=== PATIENT | female | born 1995 | race Caucasian/White ===

== ENCOUNTER → 2017-09-06 10:14 | Outpatient (CLI) | payer OTHER, SELFPAY ==
[2017-09-06 12:11] LABS: BUN Creatinine Ratio 15.7 (6-22); Blood Urea Nitrogen 11 mg/dL (7-17); Calcium 10.1 mg/dL (8.4-10.2); Carbon Dioxide 23 mmol/L (22-32); Chloride 101 mmol/L (98-107); Estimated Glomerular Filt Rate > 60.0 mL/min (>60); Glucose 88 mg/dL (70-100); HEMOLYSIS < 15 (0-50); Sodium 141 mmol/L (137-145)
== END ==
PROVIDERS: Family Provider Family Medicine; PCP Family Medicine; Visit Provider Family Medicine
DX: L68.0 Hirsutism (principal)
CPT/HCPCS: 36415; 80048

== ENCOUNTER 2017-09-17 12:09 | Emergency (ER) | payer OTHER, SELFPAY ==
[2017-09-17 12:52] VITALS: BP 132/86; PULSE 84; RESP 13; TEMP 36.6; O2SAT 99
[2017-09-17 14:31] VITALS: BP 124/84; PULSE 88; RESP 16; O2SAT 100
--- NOTE | 2017-09-17 14:51 | ED.SKABFB ---
HPI - Skin/Abscess/Foreign Bdy <TAQUERIA Walker - Last Filed: 09/17/17 22:20> General Chief complaint: Skin/Abscess/Foreign Body Stated complaint: Itchy, swollen hands Time Seen by Provider: 09/17/17 14:51 History of Present Illness HPI narrative: 22-year-old female here for complaint of having global pruritis for the last week. She was seen in the walk-in clinic and was treated with prednisone and antihistamines. She reports that she had some relief from these treatments however she is still having itching. She denies any changes to medications. With the exception of starting spironolactone last month. She denies any hygiene changes or diet changes. No hives. No shortness of breath. No other complaints. MD complaint: other Related Data Home Medications Medication Instructions Recorded Confirmed levonorgestrel [Mirena] 52 mg INTRAU #0 ea 12/19/15 09/12/17 ibuprofen 200 mg capsule 400 mg PO Q4-6H PRN 09/06/17 09/12/17 Previous Rx's Medication Instructions Recorded spironolactone 50 mg tablet 50 mg PO QAM #30 tab 08/03/17 hydroxyzine HCl 25 mg PO Q6-8H PRN #20 tab 09/17/17 Allergies Allergy/AdvReac Type Severity Reaction Status Date / Time amoxicillin Allergy Mild Verified 09/12/17 18:55 Review of Systems <TAQUERIA Walker - Last Filed: 09/17/17 22:20> Constitutional Denies chills, Denies fever(s), Denies lethargy and Denies weakness Eyes Denies change in vision, Denies eye discharge, Denies irritation and Denies loss of vision ENT Ears, Nose, Mouth, and Throat: Denies change in voice, Denies neck pain and Denies sore throat Cardiovascular Denies chest pain, Denies irregular heart rhythm, Denies lightheadedness, Denies palpitations, Denies dyspnea, Denies dyspnea on exertion and Denies orthopnea Respiratory Denies cough, Denies dyspnea, Denies dyspnea on exertion and Denies wheezing Gastrointestinal Gastrointestinal: Denies abdominal pain, Denies change in bowel habits, Denies diarrhea, Denies nausea and Denies vomiting Genitourinary Denies hematuria, Denies flank pain, Denies urinary incontinence and Denies urinary urgency Musculoskeletal Denies neck pain Integumentary/Breasts Reports pruritus Neurologic Denies confusion, Denies loss of vision and Denies weakness Psychiatric Denies anxiety, Denies confusion, Denies depression, Denies homicidal ideation and Denies suicidal ideation Endocrine Denies palpitations Hematologic/Lymphatic Denies easy bruising Allergic/Immunologic Denies wheezing Exam <TAQUERIA Walker - Last Filed: 09/17/17 22:20> Initial Vital Signs Initial Vital Signs: Vital Signs Temperature 97.9 F 09/17/17 12:52 Pulse Rate 84 09/17/17 12:52 Respiratory Rate 13 09/17/17 12:52 Blood Pressure 132/86 H 09/17/17 12:52 Pulse Oximetry 99 09/17/17 12:52 Const General: cooperative and well developed Nutritional Appearance: well nourished Orientation: alert, awake, oriented x3 and not confused HENMT Mouth: oral mucosae normal and moist mucous membranes Eyes Conjunctivae: conjunctivae normal Sclera: sclerae normal Pupils: PERRL EOM: EOM intact bilaterally Resp Effort & Inspection: normal respiratory effort, able to speak in complete sentences, no respiratory distress and no use of accessory muscles Auscultation: clear to auscultation bilaterally, no rales, no rhonchi and no wheezes Cardio Rate: regular rate Rhythm: regular rhythm Heart Sounds: no click, no gallops, no murmurs and no rubs Skin General: no rashes or lesions noted, No jaundice and No petechiae <Rosie Rodrigues DO - Last Filed: 09/18/17 09:23> Initial Vital Signs Initial Vital Signs: Vital Signs Temperature 97.9 F 09/17/17 12:52 Pulse Rate 84 09/17/17 12:52 Respiratory Rate 13 09/17/17 12:52 Blood Pressure 132/86 H 09/17/17 12:52 Pulse Oximetry 99 09/17/17 12:52 Course <TAQUERIA Walker - Last Filed: 09/17/17 22:20> Vital Signs - 8 hr 09/17/17 14:31 09/17/17 16:06 Pulse Rate 88 82 Respiratory Rate 16 14 Blood Pressure [Left Arm] 124/84 H 128/66 H Pulse Oximetry 100 97 <Rosie Rodrigues DO - Last Filed: 09/18/17 09:23> Vital Signs - 8 hr 09/17/17 14:31 09/17/17 16:06 Pulse Rate 88 82 Respiratory Rate 16 14 Blood Pressure [Left Arm] 124/84 H 128/66 H Pulse Oximetry 100 97 MDM - Skin/Abscess/Foreign Bdy <TAQUERIA Walker - Last Filed: 09/17/17 22:20> [facility] Narrative Medical decision making narrative: On exam no rashes or lesions seen with the exception of some excoriation to her lower back. No dry skin. No histamine response appreciated. Unknown etiology of her pruritus. Pruritus is listed as a possible side effect of spironolactone so I will have her discuss this with her primary care provider this week. Will try Vistaril to see if it helps her symptoms. She is encouraged to use mild soap for hygiene. For any worsening symptoms return to the emergency room. Discharge Plan Departure Patient Disposition: Home, Self-Care Clinical Impression: Pruritus Discharge Date/Time: 09/17/17 16:41 Interventions: ED Discharge Assessment Last Done: 09/17/17 16:41 Instructions: DI for Itching Activity Restrictions/Additional Instructions: No rash was appreciated on exam today. Spironolactone does have a listed side effect as itching and may be the possible source discussed this with her primary care provider this week. A different antihistamine visceral has been prescribed use as directed to see if it helps her symptoms. Use mild soap for hygiene to also see if it helps her symptoms. Follow up with her primary care provider. Return emergency room for any worsening symptoms. Prescriptions: New hydroxyzine HCl 25 mg tablet 25 mg PO Q6-8H PRN (Reason: itching) Qty: 20 RF: 0 No Action levonorgestrel [Mirena] 1 EACH intrauterine device 52 mg INTRAU Qty: 0 RF: 0 spironolactone 50 mg tablet 50 mg PO QAM Qty: 30 RF: 1 ibuprofen 200 mg capsule 400 mg PO Q4-6H PRNRF: 0 <Rosie Rodrigues DO - Last Filed: 09/18/17 09:23> Cosign ED Attending Jacquelineature Attestation: I was immediately available in the department for consultation. Documentation has been reviewed. I agree with assessment and plan.
[2017-09-17 16:06] VITALS: BP 128/66; PULSE 82; RESP 14; O2SAT 97
== END 2017-09-17 16:41 | disposition home or self-care (01) ==
PROVIDERS: Emergency Provider Nurse Practitioner Family; Family Provider Family Medicine; PCP Family Medicine
DX: L29.9 Pruritus, unspecified (principal)
CPT/HCPCS: 99282

== ENCOUNTER 2017-10-04 07:30 | Outpatient (RCR) | payer OTHER, SELFPAY ==
--- NOTE | 2017-08-24 07:51 | PT.OIE ---
Current Diagnoses Patellofemoral disorders, right knee (08/23/17) Past Medical History (Last Updated 08/03/17 @ 09:19 by Shana Longoria DO) Abnormal Pap smear of cervix (Acute) Anxiety and depression (Acute) Chlamydia (Acute) Migraines (Acute) Past Surgical History (Last Reviewed 08/03/17 @ 09:19 by Shana Longoria DO) Hx of tympanostomy tubes (Acute) Status post delivery (03/12/08) Provider Visit Care Team Role Provider Type Shana Longoria DO Attending Provider Physician Family Provider Primary Care Provider Specialty: Family Practice Address: [address] [place] [address], [employer] Email: [email or web address] Physical Therapy Initial Evaluation PT-OP-A Visit Information Start: 08/23/17 16:21 Freq: Status: Active Protocol: Document 08/23/17 16:23 EA (Rec: 08/23/17 16:38 EA [id number]) Out-Patient Physical Therapy Visit Information Visit Information Visit Type Initial Evaluation Visit Start Time 07:30 Visit Stop Time 08:05 Total Visit Minutes 35 Visit Number 1 Evaluation Information Evaluation Date 08/23/17 PT-OP-B Current Condition Start: 08/23/17 16:21 Freq: Status: Active Protocol: Document 08/23/17 16:23 EA (Rec: 08/23/17 16:38 EA [id number]) Current Condition History of Current Condition Onset Date 3 months ago Current Complaints Bilateral intermittent localized knee pain History of Current Condition Patient reports bilateral knee pain started gradullay over the course of three months and noted pain increased after doing treadmill exercises in the gym; states no x-rays were taken after last physician check up and was given pain med's. Patient reports pain aggravates with climbing down stairs and prolonged walking; states pain med's and heating pads helps but not much. 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 Health History: Tape allergy, Occasional LBP, On HTN medication, Migraine. Prior Treatments and Tests None Future Testing and Treatments Planned Patient is under the treatment for PCOS. Treatment Goals Patient/Caregiver Goals Patient wants to eliminate pain completely so she could perform gym exercises and lose more weight. Patient wants to learn exercises that would improve her knees. Prior Functional Status Baseline Function- ADL's Independent Baseline Function- Mobility Independent Current Functional Impairments (Reported) Functional Limitations- ADL's indep Functional Limitations- Mobility/Gait Indep with mild difficulty Functional Limitations- Recreation/ Limited due to pain Hobbies PT-OP-C Subjective Start: 08/23/17 16:21 Freq: Status: Active Protocol: Document 08/23/17 16:23 EA (Rec: 08/23/17 16:38 EA [id number]) OP-PT Subjective Patient Comments Patient Comments Patient reports bilateral knee pain started gradually over the course of three months and noted pain increased after doing treadmill exercises in the gym; states no x-rays were taken after last physician check up and was given pain med's. Patient reports pain aggravates with climbing down stairs and prolonged walking; states pain med's and heating pads helps but not much. 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 Patient Reported Progress Same Patient Questionnaires Lower Extremity Functional Scale LEFS Impairment 40 to 59% Impaired (Score 32- 47) OP-PT Pain Assessment Pain Assessment Grid Paper Pain Assessment Grid Completed Yes Home Pain Medication Use Pain Medications Used Yes Home Pain Medication Frequency Mediaction that use to treat PCOS Patient Goal Wants to eliminate the pain. PT-OP-F Manual Assessment Start: 08/23/17 16:21 Freq: Status: Active Protocol: Document 08/23/17 16:23 EA (Rec: 08/23/17 16:38 EA [id number]) Manual Assessments Soft Tissue Assessment Soft Tissue Mobility Assessment Tightness to both IT bands, Left quads/Hamstring Joint Mobility Assessment Joint Mobility Assessment PF joint decreased left medial glide PT-OP-G Mobility & Gait Start: 08/23/17 16:21 Freq: Status: Active Protocol: Document 08/23/17 16:23 EA (Rec: 08/23/17 16:38 EA [id number]) OP Gait Assessment Gait Gait Assistance Required: Independent Assistive Devices Assistive Device None Gait Deviations General Gait Pattern Antalgic Factors Limiting Gait Function Factors Limiting Gait Function Pain Comments Gait Comments Waddling gait noted and slight antalgic to left side. Stair Climbing Evaluation Evaluation Level of Assist On Stairs Independent Devices Stair Climbing Assistive Devices None Technique/Endurance Stair Climbing Direction Descend Comments Stair Climbing Comments With mild difficulty during descent PT-OP-J Posture/Palpation/Skin Start: 08/23/17 16:21 Freq: Status: Active Protocol: Document 08/23/17 16:38 EA (Rec: 08/23/17 16:46 EA [id number]) Palpation Assessment Location One Palpation Findings Tenderness Palpation Details left medial middle patellar border Skin Assessment Circumference Measurement 1 Location L Knee 15.8 : Right knee 15.5 at mid joint PT-OP-K Range of Motion Start: 08/23/17 16:21 Freq: Status: Active Protocol: Document 08/23/17 16:38 EA (Rec: 08/23/17 16:46 EA [id number]) Knee Goniometric Range of Motion Knee Measured in Degrees Left Patient Position Supine Hyper-Extension Active 0 PT-OP-L Special Tests Start: 08/23/17 16:21 Freq: Status: Active Protocol: Document 08/23/17 16:38 EA (Rec: 08/23/17 16:46 EA [id number]) Special Tests Knee Special Tests Varus- 25 Degrees Test Results negative both Valgus- 25 Degrees Test Results negative both Allison Test Test Results negative both Junior's Sign Test Results both positive Carrol's Test Test Results slight sensitive Hughston Pica Test Test Results positive left Polk's Compression Test Results left side positive Macho's Test Test Results both positive PT-OP-M Strength Start: 08/23/17 16:21 Freq: Status: Active Protocol: Document 08/23/17 16:38 EA (Rec: 08/23/17 16:46 EA [id number]) Hip Strength Hip Manual Muscle Testing Right Flexion (L2) 5 Normal Extension (S1) 5 Normal Abduction 5 Normal Adduction 5 Normal External Rotation 5 Normal Internal Rotation 4 Good Left Flexion (L2) 5 Normal Extension (S1) 5 Normal Abduction 5 Normal Adduction 5 Normal External Rotation 5 Normal Internal Rotation 4 Good Knee Strength Knee Manual Muscle Testing Left Reason Not Measured WFL Right Reason Not Measured WFL PT-OP-Q Treatments Start: 08/23/17 16:21 Freq: Status: Active Protocol: Document 08/23/17 16:38 EA (Rec: 08/23/17 16:46 EA [id number]) Self-Care/Home Management Treatment Education Patient Education Home Exercise Program Pain Management PT-OP-T Assessment and Plan Start: 08/23/17 16:21 Freq: Status: Active Protocol: Document 08/23/17 16:38 KENAN (Rec: 08/23/17 16:46 KENAN [id number]) Physical Therapy Assessment Rehab Potential Rehabilitation Potential Good Evaluation Complexity Number of Personal Factors/Comorbidities 0 Number of Body Systems Impaired 1-2 Clinical Presentation at Evaluation Stable Impairments Impairments Edema Pain Posture Soft Tissue Mobility Goals Five Impairment Pain with stairs descent Siebel Solution Architect Goal (LTG) Patient will reports no pain w / stairs descent. LTG Duration 4 wks. Four Impairment Pain scale of 3/10 Retirement Goal (LTG) Patient will reports pain scale of 0/10 LTG Duration 4 wks. Three Impairment Tightness to Quads, IT band and hip ER. Siebel Solution Architect Goal (LTG) Patient will have full excursion to quads, IT band and Hip ER. LTG Duration 4 wks Two Impairment Decreased left patellar medial glide Siebel Solution Architect Goal (LTG) Patient will have improve patellar tracking/ medial patellar glide for to decrease pressure to patella. 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 Patient presented with tightness to both quads, IT band, hip ERotators; decreased left medial patellar glide and tender to palpate at the borders of patella. Patient exhibits positive with bilat knees Junior's sign and left knee Plica test. Ligaments and menisci are unremarkable at the time of tests. Due to patient's musculoskeltal dysfunction, patient has limitation with WB activities that involves squating. Patient barrier noted at this time is her obesity condition. Patient will benefit with skilled PT to address the aforementioned issues. Physical Therapy Plan Frequency and Duration Frequency of Treatment 2x/Week Plan of Care Start Date 08/23/17 Plan of Care End Date 09/20/17 Therapeutic Interventions Therapeutic Interventions Home Exercise Program Joint Mobilizations Manual Therapy Patient/Caregiver Education Soft Tissue Mobilization Therapeutic Exercises Modalities Cold Pack/Ice Massage Electric Stimulation Hot Packs Ultrasound Next Visit Focus/Plan Next Visit Plan HEP handouts, flexibility exercises and VMO strengthening. Please Sign and Return: I have reviewed this Plan of Care and certify that the skilled therapy services above are required to meet the patient???s needs. Physician Signature Date Printed Name and Credentials Clinical Instructor Signature Printed Name and Credentials
--- NOTE | 2017-08-25 10:26 | PT.OTN ---
Current Diagnoses Patellofemoral disorders, right knee (08/25/17) Physical Therapy Treatment Note PT-OP-A Visit Information Start: 08/23/17 16:21 Freq: Status: Active Protocol: Document 08/25/17 07:28 AMB (Rec: 08/25/17 07:28 AMB [email or web address]) Out-Patient Physical Therapy Visit Information Visit Information Visit Type Treatment Note Visit Start Time 07:30 Visit Stop Time 08:15 Total Visit Minutes 45 Visit Number 2 Evaluation Information Evaluation Date 08/23/17 PT-OP-B Current Condition Start: 08/23/17 16:21 Freq: Status: Active Protocol: Document 08/23/17 16:23 EA (Rec: 08/23/17 16:38 EA [id number]) Current Condition History of Current Condition Onset Date 3 months ago Current Complaints Bilateral intermittent localized knee pain History of Current Condition Patient reports bilateral knee pain started gradullay over the course of three months and noted pain increased after doing treadmill exercises in the gym; states no x-rays were taken after last physician check up and was given pain med's. Patient reports pain aggravates with climbing down stairs and prolonged walking; states pain med's and heating pads helps but not much. 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 Health History: Tape allergy, Occasional LBP, On HTN medication, Migraine. Prior Treatments and Tests None Future Testing and Treatments Planned Patient is under the treatment for PCOS. Treatment Goals Patient/Caregiver Goals Patient wants to eliminate pain completely so she could perform gym exercises and lose more weight. Patient wants to learn exercises that would improve her knees. Prior Functional Status Baseline Function- ADL's Independent Baseline Function- Mobility Independent Current Functional Impairments (Reported) Functional Limitations- ADL's indep Functional Limitations- Mobility/Gait Indep with mild difficulty Functional Limitations- Recreation/ Limited due to pain Hobbies PT-OP-C Subjective Start: 08/23/17 16:21 Freq: Status: Active Protocol: Document 08/25/17 07:30 AMB (Rec: 08/25/17 08:02 AMB [id number]) OP-PT Subjective Patient Comments Patient Comments Pt states she was a bit sore after last appointment, she did ice her knees. PT-OP-F Manual Assessment Start: 05/22/18 16:21 Freq: Status: Active Protocol: Document 08/23/17 16:23 EA (Rec: 08/23/17 16:38 EA [id number]) Manual Assessments Soft Tissue Assessment Soft Tissue Mobility Assessment Tightness to both IT bands, Left quads/Hamstring Joint Mobility Assessment Joint Mobility Assessment PF joint decreased left medial glide PT-OP-G Mobility & Gait Start: 08/23/17 16:21 Freq: Status: Active Protocol: Document 08/23/17 16:23 EA (Rec: 08/23/17 16:38 EA [id number]) OP Gait Assessment Gait Gait Assistance Required: Independent Assistive Devices Assistive Device None Gait Deviations General Gait Pattern Antalgic Factors Limiting Gait Function Factors Limiting Gait Function Pain Comments Gait Comments Waddling gait noted and slight antalgic to left side. Stair Climbing Evaluation Evaluation Level of Assist On Stairs Independent Devices Stair Climbing Assistive Devices None Technique/Endurance Stair Climbing Direction Descend Comments Stair Climbing Comments With mild difficulty during descent PT-OP-J Posture/Palpation/Skin Start: 08/23/17 16:21 Freq: Status: Active Protocol: Document 08/23/17 16:38 EA (Rec: 08/23/17 16:46 EA [id number]) Palpation Assessment Location One Palpation Findings Tenderness Palpation Details left medial middle patellar border Skin Assessment Circumference Measurement 1 Location L Knee 15.8 : Right knee 15.5 at mid joint PT-OP-K Range of Motion Start: 08/23/17 16:21 Freq: Status: Active Protocol: Document 08/23/17 16:38 EA (Rec: 08/23/17 16:46 EA [id number]) Knee Goniometric Range of Motion Knee Measured in Degrees Left Patient Position Supine Hyper-Extension Active 0 PT-OP-L Special Tests Start: 08/23/17 16:21 Freq: Status: Active Protocol: Document 08/23/17 16:38 EA (Rec: 08/23/17 16:46 EA [id number]) Special Tests Knee Special Tests Varus- 25 Degrees Test Results negative both Valgus- 25 Degrees Test Results negative both Allison Test Test Results negative both Junior's Sign Test Results both positive Carrol's Test Test Results slight sensitive Hughston Pica Test Test Results positive left Polk's Compression Test Results left side positive Macho's Test Test Results both positive PT-OP-M Strength Start: 08/23/17 16:21 Freq: Status: Active Protocol: Document 08/23/17 16:38 EA (Rec: 08/23/17 16:46 EA [id number]) Hip Strength Hip Manual Muscle Testing Right Flexion (L2) 5 Normal Extension (S1) 5 Normal Abduction 5 Normal Adduction 5 Normal External Rotation 5 Normal Internal Rotation 4 Good Left Flexion (L2) 5 Normal Extension (S1) 5 Normal Abduction 5 Normal Adduction 5 Normal External Rotation 5 Normal Internal Rotation 4 Good Knee Strength Knee Manual Muscle Testing Left Reason Not Measured WFL Right Reason Not Measured WFL PT-OP-Q Treatments Start: 08/23/17 16:21 Freq: Status: Active Protocol: Document 08/25/17 07:30 AMB (Rec: 08/25/17 09:29 AMB [email or web address]) Cardio Equipment Recumbent Bicycle Duration (Minutes) 5 Resistance 5 Seat Position 2 Therapeutic Exercises Supine Exercises 3 Supine Exercise Name single knee to chest Reps/Minutes 30x2 2 Supine Exercise Name piriformis stretch Reps/Minutes 30x2 1 Supine Exercise Name IT band stretch with band Side bilateral Reps/Minutes 30x2 Sidelying Exercises 2 Sidelying Exercise Name clamshell Reps/Minutes 2 x10 1 Sidelying Exercise Name hip abduction Side bilateral Resistance 0# Reps/Minutes 2 x 5 Manual Therapy Treatment Soft Tissue Mobilization 1 Body Location IT band Mobilization Type Rolling Intensity/Depth Moderate PT-OP-R Modalities Start: 08/23/17 16:21 Freq: Status: Active Protocol: Document 08/25/17 07:30 AMB (Rec: 08/25/17 09:31 AMB [email or web address]) Hot Pack/Cold Pack Treatment ice Location Bilateral knees Patient Position Hooklying Treatment Duration (minutes) 10 Patient Tolerance Good PT-OP-T Assessment and Plan Start: 08/23/17 16:21 Freq: Status: Active Protocol: Document 08/25/17 07:30 AMB (Rec: 08/25/17 09:29 AMB [email or web address]) Physical Therapy Assessment Assessment Summary Assessment The patient tolerated stretching exercises well. Fatigues quickly with hip abduction. Tight with IT band and piriformis stretching. Physical Therapy Plan Next Visit Focus/Plan Next Visit Plan Follow up on HEP, start quad strengthening Please Sign and Return: I have reviewed this Plan of Care and certify that the skilled therapy services above are required to meet the patient???s needs. Physician Signature Date Printed Name and Credentials Clinical Instructor Signature Printed Name and Credentials
--- NOTE | 2017-08-31 08:38 | PT.OTN ---
Current Diagnoses Patellofemoral disorders, right knee (08/31/17) Physical Therapy Treatment Note PT-OP-A Visit Information Start: 08/23/17 16:21 Freq: Status: Active Protocol: Document 08/31/17 07:30 AMB (Rec: 08/31/17 07:30 AMB [id number]) Out-Patient Physical Therapy Visit Information Visit Information Visit Type Treatment Note Visit Start Time 07:30 Visit Stop Time 08:15 Total Visit Minutes 45 Visit Number 3 PT-OP-B Current Condition Start: 08/23/17 16:21 Freq: Status: Active Protocol: Document 08/23/17 16:23 EA (Rec: 08/23/17 16:38 EA [id number]) Current Condition History of Current Condition Onset Date 3 months ago Current Complaints Bilateral intermittent localized knee pain History of Current Condition Patient reports bilateral knee pain started gradullay over the course of three months and noted pain increased after doing treadmill exercises in the gym; states no x-rays were taken after last physician check up and was given pain med's. Patient reports pain aggravates with climbing down stairs and prolonged walking; states pain med's and heating pads helps but not much. 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 Health History: Tape allergy, Occasional LBP, On HTN medication, Migraine. Prior Treatments and Tests None Future Testing and Treatments Planned Patient is under the treatment for PCOS. Treatment Goals Patient/Caregiver Goals Patient wants to eliminate pain completely so she could perform gym exercises and lose more weight. Patient wants to learn exercises that would improve her knees. Prior Functional Status Baseline Function- ADL's Independent Baseline Function- Mobility Independent Current Functional Impairments (Reported) Functional Limitations- ADL's indep Functional Limitations- Mobility/Gait Indep with mild difficulty Functional Limitations- Recreation/ Limited due to pain Hobbies PT-OP-C Subjective Start: 08/23/17 16:21 Freq: Status: Active Protocol: Document 08/31/17 07:30 AMB (Rec: 08/31/17 08:08 AMB [id number]) OP-PT Subjective Patient Comments Patient Comments Pt reports she has been feeling good, but she also has not been going to the gym. PT-OP-F Manual Assessment Start: 08/23/17 16:21 Freq: Status: Active Protocol: Document 08/23/17 16:23 EA (Rec: 08/23/17 16:38 EA [id number]) Manual Assessments Soft Tissue Assessment Soft Tissue Mobility Assessment Tightness to both IT bands, Left quads/Hamstring Joint Mobility Assessment Joint Mobility Assessment PF joint decreased left medial glide PT-OP-G Mobility & Gait Start: 08/23/17 16:21 Freq: Status: Active Protocol: Document 08/23/17 16:23 EA (Rec: 08/23/17 16:38 EA [id number]) OP Gait Assessment Gait Gait Assistance Required: Independent Assistive Devices Assistive Device None Gait Deviations General Gait Pattern Antalgic Factors Limiting Gait Function Factors Limiting Gait Function Pain Comments Gait Comments Waddling gait noted and slight antalgic to left side. Stair Climbing Evaluation Evaluation Level of Assist On Stairs Independent Devices Stair Climbing Assistive Devices None Technique/Endurance Stair Climbing Direction Descend Comments Stair Climbing Comments With mild difficulty during descent PT-OP-J Posture/Palpation/Skin Start: 08/23/17 16:21 Freq: Status: Active Protocol: Document 08/23/17 16:38 EA (Rec: 08/23/17 16:46 EA [id number]) Palpation Assessment Location One Palpation Findings Tenderness Palpation Details left medial middle patellar border Skin Assessment Circumference Measurement 1 Location L Knee 15.8 : Right knee 15.5 at mid joint PT-OP-K Range of Motion Start: 08/23/17 16:21 Freq: Status: Active Protocol: Document 08/23/17 16:38 EA (Rec: 08/23/17 16:46 EA [id number]) Knee Goniometric Range of Motion Knee Measured in Degrees Left Patient Position Supine Hyper-Extension Active 0 PT-OP-L Special Tests Start: 08/23/17 16:21 Freq: Status: Active Protocol: Document 08/23/17 16:38 EA (Rec: 08/23/17 16:46 EA [id number]) Special Tests Knee Special Tests Varus- 25 Degrees Test Results negative both Valgus- 25 Degrees Test Results negative both Allison Test Test Results negative both Junior's Sign Test Results both positive Carrol's Test Test Results slight sensitive Hughston Pica Test Test Results positive left Polk's Compression Test Results left side positive Macho's Test Test Results both positive PT-OP-M Strength Start: 08/23/17 16:21 Freq: Status: Active Protocol: Document 08/23/17 16:38 EA (Rec: 08/23/17 16:46 EA [id number]) Hip Strength Hip Manual Muscle Testing Right Flexion (L2) 5 Normal Extension (S1) 5 Normal Abduction 5 Normal Adduction 5 Normal External Rotation 5 Normal Internal Rotation 4 Good Left Flexion (L2) 5 Normal Extension (S1) 5 Normal Abduction 5 Normal Adduction 5 Normal External Rotation 5 Normal Internal Rotation 4 Good Knee Strength Knee Manual Muscle Testing Left Reason Not Measured WFL Right Reason Not Measured WFL PT-OP-Q Treatments Start: 08/23/17 16:21 Freq: Status: Active Protocol: Document 08/31/17 07:30 AMB (Rec: 08/31/17 08:37 AMB [email or web address]) Cardio Equipment Recumbent Bicycle Duration (Minutes) 6 Resistance 5 Seat Position 2 Gym Equipment Shuttle Recovery Bilateral Squats Resistance 62 Shuttle Recovery Platform Stable Reps/Time 3x10 Therapeutic Exercises Supine Exercises 4 Supine Exercise Name SLR Side bilateral Reps/Minutes 2x10 2 Supine Exercise Name piriformis stretch Reps/Minutes 30x2 1 Supine Exercise Name IT band stretch with band Side bilateral Reps/Minutes 30x2 Sidelying Exercises 2 Sidelying Exercise Name clamshell Reps/Minutes 2 x10 1 Sidelying Exercise Name hip abduction Side bilateral Resistance 0# Reps/Minutes 2 x 5 Standing Exercises 1 Standing Exercise Name squat Reps/Minutes x5 Comments mini PT-OP-R Modalities Start: 08/23/17 16:21 Freq: Status: Active Protocol: Document 08/31/17 07:30 AMB (Rec: 08/31/17 08:37 AMB [email or web address]) Hot Pack/Cold Pack Treatment ice Location Bilateral knees Patient Position Hooklying Treatment Duration (minutes) 10 Patient Tolerance Good PT-OP-T Assessment and Plan Start: 08/23/17 16:21 Freq: Status: Active Protocol: Document 08/31/17 07:30 AMB (Rec: 08/31/17 08:37 AMB [email or web address]) Physical Therapy Assessment Goals Five Impairment Pain with stairs descent Custodial Goal (LTG) Patient will reports no pain w / stairs descent. LTG Duration 4 wks. Four Impairment Pain scale of 3/10 Custodial Goal (LTG) Patient will reports pain scale of 0/10 LTG Duration 4 wks. Three Impairment Tightness to Quads, IT band and hip ER. Api Product Manager Goal (LTG) Patient will have full excursion to quads, IT band and Hip ER. LTG Duration 4 wks Two Impairment Decreased left patellar medial glide Api Product Manager Goal (LTG) Patient will have improve patellar tracking/ medial patellar glide for to decrease pressure to patella. LTG Duration 4 wks One Impairment LEFS score of 37/80 Api Product Manager Goal (LTG) Patient will have LEFS score of at least 60/80 LTG Duration 4 wks Assessment Summary Assessment Pt with discomfort with deep squatting. Vc for form. Will need follow up. Physical Therapy Plan Frequency and Duration Frequency of Treatment 2x/Week Plan of Care Start Date 08/23/17 Plan of Care End Date 09/20/17 Next Visit Focus/Plan Next Visit Plan Follow up with squat form. Please Sign and Return: I have reviewed this Plan of Care and certify that the skilled therapy services above are required to meet the patient???s needs. Physician Signature Date Printed Name and Credentials Clinical Instructor Signature Printed Name and Credentials
--- NOTE | 2017-09-05 08:21 | PT.OTN ---
Current Diagnoses Patellofemoral disorders, right knee (09/05/17) Physical Therapy Treatment Note PT-OP-A Visit Information Start: 08/23/17 16:21 Freq: Status: Active Protocol: Document 09/05/17 08:13 EA (Rec: 09/05/17 08:21 EA [id number]) Out-Patient Physical Therapy Visit Information Visit Information Visit Type Treatment Note Visit Start Time 07:30 Visit Stop Time 08:15 Total Visit Minutes 45 Visit Number 4 PT-OP-B Current Condition Start: 08/23/17 16:21 Freq: Status: Active Protocol: Document 08/23/17 16:23 EA (Rec: 08/23/17 16:38 EA [id number]) Current Condition History of Current Condition Onset Date 3 months ago Current Complaints Bilateral intermittent localized knee pain History of Current Condition Patient reports bilateral knee pain started gradullay over the course of three months and noted pain increased after doing treadmill exercises in the gym; states no x-rays were taken after last physician check up and was given pain med's. Patient reports pain aggravates with climbing down stairs and prolonged walking; states pain med's and heating pads helps but not much. 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 Health History: Tape allergy, Occasional LBP, On HTN medication, Migraine. Prior Treatments and Tests None Future Testing and Treatments Planned Patient is under the treatment for PCOS. Treatment Goals Patient/Caregiver Goals Patient wants to eliminate pain completely so she could perform gym exercises and lose more weight. Patient wants to learn exercises that would improve her knees. Prior Functional Status Baseline Function- ADL's Independent Baseline Function- Mobility Independent Current Functional Impairments (Reported) Functional Limitations- ADL's indep Functional Limitations- Mobility/Gait Indep with mild difficulty Functional Limitations- Recreation/ Limited due to pain Hobbies PT-OP-C Subjective Start: 08/23/17 16:21 Freq: Status: Active Protocol: Document 09/05/17 08:13 EA (Rec: 09/05/17 08:21 EA [id number]) OP-PT Subjective Patient Comments Patient Comments Patient reports kness are getting better and she has been complaint with HEP. Patient Reported Progress Improving PT-OP-F Manual Assessment Start: 08/23/17 16:21 Freq: Status: Active Protocol: Document 08/23/17 16:23 EA (Rec: 08/23/17 16:38 EA [id number]) Manual Assessments Soft Tissue Assessment Soft Tissue Mobility Assessment Tightness to both IT bands, Left quads/Hamstring Joint Mobility Assessment Joint Mobility Assessment PF joint decreased left medial glide PT-OP-G Mobility & Gait Start: 08/23/17 16:21 Freq: Status: Active Protocol: Document 08/23/17 16:23 EA (Rec: 08/23/17 16:38 EA [id number]) OP Gait Assessment Gait Gait Assistance Required: Independent Assistive Devices Assistive Device None Gait Deviations General Gait Pattern Antalgic Factors Limiting Gait Function Factors Limiting Gait Function Pain Comments Gait Comments Waddling gait noted and slight antalgic to left side. Stair Climbing Evaluation Evaluation Level of Assist On Stairs Independent Devices Stair Climbing Assistive Devices None Technique/Endurance Stair Climbing Direction Descend Comments Stair Climbing Comments With mild difficulty during descent PT-OP-J Posture/Palpation/Skin Start: 08/23/17 16:21 Freq: Status: Active Protocol: Document 08/23/17 16:38 EA (Rec: 08/23/17 16:46 EA [id number]) Palpation Assessment Location One Palpation Findings Tenderness Palpation Details left medial middle patellar border Skin Assessment Circumference Measurement 1 Location L Knee 15.8 : Right knee 15.5 at mid joint PT-OP-K Range of Motion Start: 08/23/17 16:21 Freq: Status: Active Protocol: Document 08/23/17 16:38 EA (Rec: 08/23/17 16:46 EA [id number]) Knee Goniometric Range of Motion Knee Measured in Degrees Left Patient Position Supine Hyper-Extension Active 0 PT-OP-L Special Tests Start: 08/23/17 16:21 Freq: Status: Active Protocol: Document 08/23/17 16:38 EA (Rec: 08/23/17 16:46 EA [id number]) Special Tests Knee Special Tests Varus- 25 Degrees Test Results negative both Valgus- 25 Degrees Test Results negative both Allison Test Test Results negative both Junior's Sign Test Results both positive Carrol's Test Test Results slight sensitive Hughston Pica Test Test Results positive left Polk's Compression Test Results left side positive Macho's Test Test Results both positive PT-OP-M Strength Start: 08/23/17 16:21 Freq: Status: Active Protocol: Document 08/23/17 16:38 EA (Rec: 08/23/17 16:46 EA [id number]) Hip Strength Hip Manual Muscle Testing Right Flexion (L2) 5 Normal Extension (S1) 5 Normal Abduction 5 Normal Adduction 5 Normal External Rotation 5 Normal Internal Rotation 4 Good Left Flexion (L2) 5 Normal Extension (S1) 5 Normal Abduction 5 Normal Adduction 5 Normal External Rotation 5 Normal Internal Rotation 4 Good Knee Strength Knee Manual Muscle Testing Left Reason Not Measured WFL Right Reason Not Measured WFL PT-OP-Q Treatments Start: 08/23/17 16:21 Freq: Status: Active Protocol: Document 09/05/17 08:13 EA (Rec: 09/05/17 08:21 EA [id number]) Cardio Equipment Recumbent Bicycle Duration (Minutes) 6 Resistance 5 Seat Position 2 Gym Equipment Cable Column (Body Solid) Hip Adduction Resistance x 2 plates Reps/Time x 10 reps x 2 Leg Extension Details VMO focus Reps/Time x10 reps x 2 Shuttle Recovery Bilateral Squats Resistance 62 Shuttle Recovery Platform Stable Reps/Time 3x10 Therapeutic Exercises Supine Exercises 4 Supine Exercise Name SLR Side bilateral Reps/Minutes 2x10 2 Supine Exercise Name piriformis stretch Reps/Minutes 30x2 1 Supine Exercise Name IT band stretch with band Side bilateral Reps/Minutes 30x2 Sidelying Exercises 1 Sidelying Exercise Name hip abduction Side bilateral Resistance 0# Reps/Minutes 2 x 5 Standing Exercises 1 Standing Exercise Name Wlla squat with VMO focus Reps/Minutes x 12 x 2 sets Manual Therapy Treatment Soft Tissue Mobilization 1 Body Location IT band Mobilization Type Rolling Intensity/Depth Moderate Self-Care/Home Management Treatment Education Patient Education Joint Protection Pain Management Posture Other Education sensible and healthy weight loss. PT-OP-R Modalities Start: 08/23/17 16:21 Freq: Status: Active Protocol: Document 09/05/17 08:13 EA (Rec: 09/05/17 08:21 EA [id number]) Hot Pack/Cold Pack Treatment ice Location Bilateral knees Patient Position Hooklying Treatment Duration (minutes) 10 Patient Tolerance Good PT-OP-T Assessment and Plan Start: 08/23/17 16:21 Freq: Status: Active Protocol: Document 09/05/17 08:13 EA (Rec: 09/05/17 08:21 KENAN [id number]) Physical Therapy Assessment Assessment Summary Assessment Patient is progressing well. Physical Therapy Plan Next Visit Focus/Plan Next Visit Plan Advance as tolerated. Please Sign and Return: I have reviewed this Plan of Care and certify that the skilled therapy services above are required to meet the patient?s needs. Physician Signature Date Printed Name and Credentials Clinical Instructor Signature Printed Name and Credentials
--- NOTE | 2017-09-13 12:11 | PT.OTN ---
Current Diagnoses Patellofemoral disorders, right knee (09/13/17) Physical Therapy Treatment Note PT-OP-A Visit Information Start: 08/23/17 16:21 Freq: Status: Active Protocol: Document 09/13/17 08:14 EA (Rec: 09/13/17 08:19 EA [id number]) Out-Patient Physical Therapy Visit Information Visit Information Visit Type Treatment Note Visit Start Time 07:30 Visit Stop Time 08:15 Total Visit Minutes 45 Visit Number 5 PT-OP-B Current Condition Start: 08/23/17 16:21 Freq: Status: Active Protocol: Document 08/23/17 16:23 EA (Rec: 08/23/17 16:38 EA [id number]) Current Condition History of Current Condition Onset Date 3 months ago Current Complaints Bilateral intermittent localized knee pain History of Current Condition Patient reports bilateral knee pain started gradullay over the course of three months and noted pain increased after doing treadmill exercises in the gym; states no x-rays were taken after last physician check up and was given pain med's. Patient reports pain aggravates with climbing down stairs and prolonged walking; states pain med's and heating pads helps but not much. 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 Health History: Tape allergy, Occasional LBP, On HTN medication, Migraine. Prior Treatments and Tests None Future Testing and Treatments Planned Patient is under the treatment for PCOS. Treatment Goals Patient/Caregiver Goals Patient wants to eliminate pain completely so she could perform gym exercises and lose more weight. Patient wants to learn exercises that would improve her knees. Prior Functional Status Baseline Function- ADL's Independent Baseline Function- Mobility Independent Current Functional Impairments (Reported) Functional Limitations- ADL's indep Functional Limitations- Mobility/Gait Indep with mild difficulty Functional Limitations- Recreation/ Limited due to pain Hobbies PT-OP-C Subjective Start: 08/23/17 16:21 Freq: Status: Active Protocol: Document 09/13/17 08:14 EA (Rec: 09/13/17 08:19 EA [id number]) OP-PT Subjective Patient Comments Patient Comments Patient reports knee pain intensity and frequency is further less; states she is excited to go back to the gym to shed off more weight. PT-OP-F Manual Assessment Start: 08/23/17 16:21 Freq: Status: Active Protocol: Document 08/23/17 16:23 EA (Rec: 08/23/17 16:38 EA [id number]) Manual Assessments Soft Tissue Assessment Soft Tissue Mobility Assessment Tightness to both IT bands, Left quads/Hamstring Joint Mobility Assessment Joint Mobility Assessment PF joint decreased left medial glide PT-OP-G Mobility & Gait Start: 08/23/17 16:21 Freq: Status: Active Protocol: Document 08/23/17 16:23 EA (Rec: 08/23/17 16:38 EA [id number]) OP Gait Assessment Gait Gait Assistance Required: Independent Assistive Devices Assistive Device None Gait Deviations General Gait Pattern Antalgic Factors Limiting Gait Function Factors Limiting Gait Function Pain Comments Gait Comments Waddling gait noted and slight antalgic to left side. Stair Climbing Evaluation Evaluation Level of Assist On Stairs Independent Devices Stair Climbing Assistive Devices None Technique/Endurance Stair Climbing Direction Descend Comments Stair Climbing Comments With mild difficulty during descent PT-OP-J Posture/Palpation/Skin Start: 08/23/17 16:21 Freq: Status: Active Protocol: Document 08/23/17 16:38 EA (Rec: 08/23/17 16:46 EA [id number]) Palpation Assessment Location One Palpation Findings Tenderness Palpation Details left medial middle patellar border Skin Assessment Circumference Measurement 1 Location L Knee 15.8 : Right knee 15.5 at mid joint PT-OP-K Range of Motion Start: 08/23/17 16:21 Freq: Status: Active Protocol: Document 08/23/17 16:38 EA (Rec: 08/23/17 16:46 EA [id number]) Knee Goniometric Range of Motion Knee Measured in Degrees Left Patient Position Supine Hyper-Extension Active 0 PT-OP-L Special Tests Start: 08/23/17 16:21 Freq: Status: Active Protocol: Document 08/23/17 16:38 EA (Rec: 08/23/17 16:46 EA [id number]) Special Tests Knee Special Tests Varus- 25 Degrees Test Results negative both Valgus- 25 Degrees Test Results negative both Allison Test Test Results negative both Ujnior's Sign Test Results both positive Carrol's Test Test Results slight sensitive Hughston Pica Test Test Results positive left Polk's Compression Test Results left side positive Macho's Test Test Results both positive PT-OP-M Strength Start: 08/23/17 16:21 Freq: Status: Active Protocol: Document 08/23/17 16:38 EA (Rec: 08/23/17 16:46 EA [id number]) Hip Strength Hip Manual Muscle Testing Right Flexion (L2) 5 Normal Extension (S1) 5 Normal Abduction 5 Normal Adduction 5 Normal External Rotation 5 Normal Internal Rotation 4 Good Left Flexion (L2) 5 Normal Extension (S1) 5 Normal Abduction 5 Normal Adduction 5 Normal External Rotation 5 Normal Internal Rotation 4 Good Knee Strength Knee Manual Muscle Testing Left Reason Not Measured WFL Right Reason Not Measured WFL PT-OP-Q Treatments Start: 08/23/17 16:21 Freq: Status: Active Protocol: Document 09/13/17 08:14 EA (Rec: 09/13/17 08:19 EA [id number]) Cardio Equipment Elliptical Duration (Minutes) 8 Resistance 4 Other interval Recumbent Stepper (Sci-Fit) Duration (Minutes) 3 Resistance 3 Gym Equipment Cable Column (Body Solid) Hip Adduction Resistance x 2 plates Reps/Time x 10 reps x 2 Leg Extension Details VMO focus Reps/Time x10 reps x 2 Shuttle Recovery Bilateral Squats Resistance 125 Shuttle Recovery Platform Stable Reps/Time 3x10 Therapeutic Exercises Supine Exercises 3 Supine Exercise Name single knee to chest Reps/Minutes 30x2 2 Supine Exercise Name piriformis stretch Reps/Minutes 30x2 Comments HEP 1 Supine Exercise Name IT band stretch with band Side bilateral Reps/Minutes 30x2 Comments HEP Standing Exercises 1 Standing Exercise Name Wlla squat with VMO focus Reps/Minutes x 12 x 2 sets Comments HEP Self-Care/Home Management Treatment Education Patient Education Home Exercise Program Posture Safety Caregiver Education Weight loss education PT-OP-R Modalities Start: 08/23/17 16:21 Freq: Status: Active Protocol: Document 09/13/17 08:19 EA (Rec: 09/13/17 08:20 EA [id number]) Hot Pack/Cold Pack Treatment ice Location Bilateral knees Patient Position Hooklying Treatment Duration (minutes) 10 Patient Tolerance Good PT-OP-T Assessment and Plan Start: 08/23/17 16:21 Freq: Status: Active Protocol: Document 09/13/17 08:14 EA (Rec: 09/13/17 08:19 EA [id number]) Physical Therapy Assessment Assessment Summary Assessment Patient is progressing well. No discomfort noted in all therpeutic exercises. Patient recommended to follow up in three weeks and advised to follow HEP and fitness exercises prtocol. Physical Therapy Plan Next Visit Focus/Plan Next Visit Plan Advance as tolerated. Possible discharge if no more complaint. Please Sign and Return: I have reviewed this Plan of Care and certify that the skilled therapy services above are required to meet the patient?s needs. Physician Signature Date Printed Name and Credentials Clinical Instructor Signature Printed Name and Credentials
--- NOTE | 2017-10-04 07:30 | PT.OTN ---
Current Diagnoses Patellofemoral disorders, right knee (10/04/17) Physical Therapy Treatment Note PT-OP-A Visit Information Start: 08/23/17 16:21 Freq: Status: Active Protocol: Document 10/04/17 07:40 AMB (Rec: 10/04/17 07:45 AMB [id number]) Out-Patient Physical Therapy Visit Information Visit Information Visit Type Treatment Note Visit Start Time 07:40 Visit Stop Time 08:15 Total Visit Minutes 45 Visit Number 6 PT-OP-B Current Condition Start: 08/23/17 16:21 Freq: Status: Active Protocol: Document 08/23/17 16:23 EA (Rec: 08/23/17 16:38 EA [id number]) Current Condition History of Current Condition Onset Date 3 months ago Current Complaints Bilateral intermittent localized knee pain History of Current Condition Patient reports bilateral knee pain started gradullay over the course of three months and noted pain increased after doing treadmill exercises in the gym; states no x-rays were taken after last physician check up and was given pain med's. Patient reports pain aggravates with climbing down stairs and prolonged walking; states pain med's and heating pads helps but not much. 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 Health History: Tape allergy, Occasional LBP, On HTN medication, Migraine. Prior Treatments and Tests None Future Testing and Treatments Planned Patient is under the treatment for PCOS. Treatment Goals Patient/Caregiver Goals Patient wants to eliminate pain completely so she could perform gym exercises and lose more weight. Patient wants to learn exercises that would improve her knees. Prior Functional Status Baseline Function- ADL's Independent Baseline Function- Mobility Independent Current Functional Impairments (Reported) Functional Limitations- ADL's indep Functional Limitations- Mobility/Gait Indep with mild difficulty Functional Limitations- Recreation/ Limited due to pain Hobbies PT-OP-C Subjective Start: 08/23/17 16:21 Freq: Status: Active Protocol: Document 10/04/17 07:40 AMB (Rec: 10/04/17 07:45 AMB [id number]) OP-PT Subjective Patient Comments Patient Comments Patient reports she has been going to the gym 3x/week, doing elliptical for 15 minutes, and wall squats. PT-OP-F Manual Assessment Start: 08/23/17 16:21 Freq: Status: Active Protocol: Document 08/23/17 16:23 EA (Rec: 08/23/17 16:38 EA [id number]) Manual Assessments Soft Tissue Assessment Soft Tissue Mobility Assessment Tightness to both IT bands, Left quads/Hamstring Joint Mobility Assessment Joint Mobility Assessment PF joint decreased left medial glide PT-OP-G Mobility & Gait Start: 08/23/17 16:21 Freq: Status: Active Protocol: Document 08/23/17 16:23 EA (Rec: 08/23/17 16:38 EA [id number]) OP Gait Assessment Gait Gait Assistance Required: Independent Assistive Devices Assistive Device None Gait Deviations General Gait Pattern Antalgic Factors Limiting Gait Function Factors Limiting Gait Function Pain Comments Gait Comments Waddling gait noted and slight antalgic to left side. Stair Climbing Evaluation Evaluation Level of Assist On Stairs Independent Devices Stair Climbing Assistive Devices None Technique/Endurance Stair Climbing Direction Descend Comments Stair Climbing Comments With mild difficulty during descent PT-OP-J Posture/Palpation/Skin Start: 08/23/17 16:21 Freq: Status: Active Protocol: Document 08/23/17 16:38 EA (Rec: 08/23/17 16:46 EA [id number]) Palpation Assessment Location One Palpation Findings Tenderness Palpation Details left medial middle patellar border Skin Assessment Circumference Measurement 1 Location L Knee 15.8 : Right knee 15.5 at mid joint PT-OP-K Range of Motion Start: 08/23/17 16:21 Freq: Status: Active Protocol: Document 08/23/17 16:38 EA (Rec: 08/23/17 16:46 EA [id number]) Knee Goniometric Range of Motion Knee Measured in Degrees Left Patient Position Supine Hyper-Extension Active 0 PT-OP-L Special Tests Start: 08/23/17 16:21 Freq: Status: Active Protocol: Document 08/23/17 16:38 EA (Rec: 08/23/17 16:46 EA [id number]) Special Tests Knee Special Tests Varus- 25 Degrees Test Results negative both Valgus- 25 Degrees Test Results negative both Allison Test Test Results negative both Junior's Sign Test Results both positive Carrol's Test Test Results slight sensitive Hughston Pica Test Test Results positive left Polk's Compression Test Results left side positive Macho's Test Test Results both positive PT-OP-M Strength Start: 08/23/17 16:21 Freq: Status: Active Protocol: Document 08/23/17 16:38 EA (Rec: 08/23/17 16:46 EA [id number]) Hip Strength Hip Manual Muscle Testing Right Flexion (L2) 5 Normal Extension (S1) 5 Normal Abduction 5 Normal Adduction 5 Normal External Rotation 5 Normal Internal Rotation 4 Good Left Flexion (L2) 5 Normal Extension (S1) 5 Normal Abduction 5 Normal Adduction 5 Normal External Rotation 5 Normal Internal Rotation 4 Good Knee Strength Knee Manual Muscle Testing Left Reason Not Measured WFL Right Reason Not Measured WFL PT-OP-Q Treatments Start: 08/23/17 16:21 Freq: Status: Active Protocol: Document 10/04/17 08:13 AMB (Rec: 10/04/17 08:20 AMB [id number]) Cardio Equipment Elliptical Duration (Minutes) 5 Resistance 5 Rowing Machine Duration (Minutes) 5 Resistance 1 Gym Equipment Cable Column (Body Solid) Hip Abduction Resistance 2 plates Reps/Time 10 Hip Adduction Resistance x 2 plates Reps/Time x 10 reps x 2 Leg Extension Details VMO focus Reps/Time x10 reps x 2 Therapeutic Exercises Standing Exercises 2 Standing Exercise Name partial lunge Reps/Minutes 10 1 Standing Exercise Name Wall squat with VMO focus Reps/Minutes x 12 x 2 sets Comments HEP PT-OP-R Modalities Start: 08/23/17 16:21 Freq: Status: Active Protocol: Document 09/13/17 08:19 EA (Rec: 09/13/17 08:20 EA [id number]) Hot Pack/Cold Pack Treatment ice Location Bilateral knees Patient Position Hooklying Treatment Duration (minutes) 10 Patient Tolerance Good PT-OP-T Assessment and Plan Start: 08/23/17 16:21 Freq: Status: Active Protocol: Document 10/04/17 07:58 AMB (Rec: 10/04/17 08:00 AMB [id number]) Physical Therapy Assessment Goals Five Impairment Pain with stairs descent Boiler Operator Goal (LTG) Patient will reports no pain w / stairs descent. MET LTG Duration 4 wks. Four Impairment Pain scale of 3/10 Intermediate Goal (LTG) Patient will reports pain scale of 0/10 MET LTG Duration 4 wks. Three Impairment Tightness to Quads, IT band and hip ER. Boiler Operator Goal (LTG) Patient will have full excursion to quads, IT band and Hip ER. MET LTG Duration 4 wks Two Impairment Decreased left patellar medial glide Intermediate Goal (LTG) Patient will have improve patellar tracking/ medial patellar glide for to decrease pressure to patella. MET LTG Duration 4 wks One Impairment LEFS score of 37/80 Boiler Operator Goal (LTG) Patient will have LEFS score of at least 60/80 MET LTG Duration 4 wks Assessment Summary Assessment The patient has been able to return to the gym without her knee pain (she has been limiting herself to 15 minutes on the elliptical, and only a few of the weight machines. Pt was instructed in body weight resistance exercises as well. At this time she will likely be able to slowly add weight machines back into her routine, so she is therefore discharged from PT. Physical Therapy Plan Discharge Physical Therapy Discharge Reasons Goals Met
--- NOTE | 2017-10-04 08:15 | PT.OPDS ---
Current Diagnoses Patellofemoral disorders, right knee (10/04/17) Provider Visit Care Team Role Provider Type Shana Longoria DO Attending Provider Physician Family Provider Primary Care Provider Specialty: Family Practice Address: [address] [place] [address], [facility] Email: [email or web address] Visit Number Visit Number 6 Discharge Summary PT-OP-B Current Condition Start: 08/23/17 16:21 Freq: Status: Active Protocol: Document 08/23/17 16:23 EA (Rec: 08/23/17 16:38 EA [id number]) Current Condition History of Current Condition Onset Date 3 months ago Current Complaints Bilateral intermittent localized knee pain History of Current Condition Patient reports bilateral knee pain started gradullay over the course of three months and noted pain increased after doing treadmill exercises in the gym; states no x-rays were taken after last physician check up and was given pain med's. Patient reports pain aggravates with climbing down stairs and prolonged walking; states pain med's and heating pads helps but not much. 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 Health History: Tape allergy, Occasional LBP, On HTN medication, Migraine. Prior Treatments and Tests None Future Testing and Treatments Planned Patient is under the treatment for PCOS. Treatment Goals Patient/Caregiver Goals Patient wants to eliminate pain completely so she could perform gym exercises and lose more weight. Patient wants to learn exercises that would improve her knees. Prior Functional Status Baseline Function- ADL's Independent Baseline Function- Mobility Independent Current Functional Impairments (Reported) Functional Limitations- ADL's indep Functional Limitations- Mobility/Gait Indep with mild difficulty Functional Limitations- Recreation/ Limited due to pain Hobbies PT-OP-C Subjective Start: 08/23/17 16:21 Freq: Status: Active Protocol: Document 10/04/17 07:40 AMB (Rec: 10/04/17 07:45 AMB [id number]) OP-PT Subjective Patient Comments Patient Comments Patient reports she has been going to the gym 3x/week, doing elliptical for 15 minutes, and wall squats. PT-OP-F Manual Assessment Start: 08/23/17 16:21 Freq: Status: Active Protocol: Document 08/23/17 16:23 EA (Rec: 08/23/17 16:38 EA [id number]) Manual Assessments Soft Tissue Assessment Soft Tissue Mobility Assessment Tightness to both IT bands, Left quads/Hamstring Joint Mobility Assessment Joint Mobility Assessment PF joint decreased left medial glide PT-OP-G Mobility & Gait Start: 08/23/17 16:21 Freq: Status: Active Protocol: Document 08/23/17 16:23 EA (Rec: 08/23/17 16:38 EA [id number]) OP Gait Assessment Gait Gait Assistance Required: Independent Assistive Devices Assistive Device None Gait Deviations General Gait Pattern Antalgic Factors Limiting Gait Function Factors Limiting Gait Function Pain Comments Gait Comments Waddling gait noted and slight antalgic to left side. Stair Climbing Evaluation Evaluation Level of Assist On Stairs Independent Devices Stair Climbing Assistive Devices None Technique/Endurance Stair Climbing Direction Descend Comments Stair Climbing Comments With mild difficulty during descent PT-OP-J Posture/Palpation/Skin Start: 08/23/17 16:21 Freq: Status: Active Protocol: Document 08/23/17 16:38 EA (Rec: 08/23/17 16:46 EA [id number]) Palpation Assessment Location One Palpation Findings Tenderness Palpation Details left medial middle patellar border Skin Assessment Circumference Measurement 1 Location L Knee 15.8 : Right knee 15.5 at mid joint PT-OP-K Range of Motion Start: 08/23/17 16:21 Freq: Status: Active Protocol: Document 08/23/17 16:38 EA (Rec: 08/23/17 16:46 EA [id number]) Knee Goniometric Range of Motion Knee Measured in Degrees Left Patient Position Supine Hyper-Extension Active 0 PT-OP-L Special Tests Start: 08/23/17 16:21 Freq: Status: Active Protocol: Document 08/23/17 16:38 EA (Rec: 08/23/17 16:46 EA [id number]) Special Tests Knee Special Tests Varus- 25 Degrees Test Results negative both Valgus- 25 Degrees Test Results negative both Allison Test Test Results negative both Junior's Sign Test Results both positive Carrol's Test Test Results slight sensitive Hughston Pica Test Test Results positive left Polk's Compression Test Results left side positive Macho's Test Test Results both positive PT-OP-M Strength Start: 08/23/17 16:21 Freq: Status: Active Protocol: Document 08/23/17 16:38 EA (Rec: 08/23/17 16:46 EA [id number]) Hip Strength Hip Manual Muscle Testing Right Flexion (L2) 5 Normal Extension (S1) 5 Normal Abduction 5 Normal Adduction 5 Normal External Rotation 5 Normal Internal Rotation 4 Good Left Flexion (L2) 5 Normal Extension (S1) 5 Normal Abduction 5 Normal Adduction 5 Normal External Rotation 5 Normal Internal Rotation 4 Good Knee Strength Knee Manual Muscle Testing Left Reason Not Measured WFL Right Reason Not Measured WFL PT-OP-T Assessment and Plan Start: 08/23/17 16:21 Freq: Status: Active Protocol: Document 10/04/17 07:58 AMB (Rec: 10/04/17 08:00 AMB [id number]) Physical Therapy Assessment Goals Five Impairment Pain with stairs descent Shoe Lay Out Planner Goal (LTG) Patient will reports no pain w / stairs descent. MET LTG Duration 4 wks. Four Impairment Pain scale of 3/10 Shoe Lay Out Planner Goal (LTG) Patient will reports pain scale of 0/10 MET LTG Duration 4 wks. Three Impairment Tightness to Quads, IT band and hip ER. Retirement Goal (LTG) Patient will have full excursion to quads, IT band and Hip ER. MET LTG Duration 4 wks Two Impairment Decreased left patellar medial glide Retirement Goal (LTG) Patient will have improve patellar tracking/ medial patellar glide for to decrease pressure to patella. MET LTG Duration 4 wks One Impairment LEFS score of 37/80 Shoe Lay Out Planner Goal (LTG) Patient will have LEFS score of at least 60/80 MET LTG Duration 4 wks Assessment Summary Assessment The patient has been able to return to the gym without her knee pain (she has been limiting herself to 15 minutes on the elliptical, and only a few of the weight machines. Pt was instructed in body weight resistance exercises as well. At this time she will likely be able to slowly add weight machines back into her routine, so she is therefore discharged from PT. Physical Therapy Plan Discharge Physical Therapy Discharge Reasons Goals Met
== END 2017-10-05 11:05 ==
LOC: PHYS 07:30
PROVIDERS: Family Provider Family Medicine; PCP Family Medicine; Visit Provider Family Medicine
DX: M22.2X1 Patellofemoral disorders, right knee (principal)
CPT/HCPCS: 97010; 97110; 97140; 97161; 97535

== ENCOUNTER → 2018-02-22 09:00 | Outpatient (CLI) | payer OTHER, SELFPAY | PROVIDERS: Family Provider Family Medicine; PCP Family Medicine | DX: Z23 Encounter for immunization (principal) | CPT/HCPCS: 90471; 90686 ==

== ENCOUNTER 2018-10-10 05:49 | Emergency (ER) | payer OTHER, SELFPAY ==
[2018-10-10 05:50] VITALS: BP 155/92; PULSE 120; RESP 18; TEMP 36.8; O2SAT 98; BMI 37.8
--- NOTE | 2018-10-10 05:50 | ED.GENADULT ---
HPI - General Adult General Chief complaint: Skin/Abscess/Foreign Body Stated complaint: RASH ON OLD CSECTION SITE Time Seen by Provider: 10/10/18 05:50 Source: patient Mode of arrival: ambulatory Limitations: no limitations History of Present Illness HPI narrative: 23-year-old female here for evaluation of rash located on her lower abdomen over an old scar. Patient states that she started to notice it approximately 1 week ago. Since then it has worsened. She states that it omer and itches and gets worse when she sweats. Has not tried anything for the symptoms prior to Related Data Home Medications Medication Instructions Recorded Confirmed levonorgestrel [Mirena] 52 mg INTRAU #0 ea 12/19/15 10/07/17 ibuprofen 200 mg capsule 400 mg PO Q4-6H PRN 09/06/17 10/07/17 Previous Rx's Medication Instructions Recorded drospirenone 3 mg-ethinyl 1 tab PO DAILY #28 tab 10/07/17 estradiol 0.03 mg tablet nystatin 1 applictn TOP TID 7 Days #30 gram 10/10/18 Allergies Allergy/AdvReac Type Severity Reaction Status Date / Time spironolactone Allergy Intermediate itching Verified 10/09/17 10:03 amoxicillin Allergy Mild Verified 10/07/17 11:10 Review of Systems Constitutional Denies fever(s) Cardiovascular Denies chest pain and Denies dyspnea Respiratory Denies dyspnea Integumentary/Breasts Reports rash Neurologic Denies behavioral changes Psychiatric Denies behavioral changes Hematologic/Lymphatic Denies easy bleeding and Denies easy bruising [facility] Medical History Anxiety and depression (Acute ~2014) Chlamydia (Acute ~2011) Migraines (Acute ~2013) Abnormal Pap smear of cervix (Chronic ~2011) Acne (Chronic ~2003) Chronic back pain (Chronic ~2014) Chronic ear infection (Chronic ~1993) Headache (Chronic ~2013) Hearing deficit (Chronic) Heavy menstrual period (Chronic ~2012) Human papilloma virus (Chronic ~2011) Irregular menstrual cycle (Chronic ~2012) Painful menstruation (Chronic ~2012) Shoulder pain (Chronic ~2014) Vision disorder (Chronic) Chicken pox (Resolved ~1998) Social History number of children: 1 household members: children pets and animals: Yes education level: high school occupational status: employed gerardo/buddhist: Unknown leisure activities: other other: Outdoors, zoos, lakes seatbelt use: always helmet use: Yes water heater temp set < 120 deg: Yes working smoke detector in home: Yes fire extinguisher in home: Yes carbon monox detector in home: Yes firearms in home: No Smoking Status: Current every day smoker quit status: considering quitting alcohol intake: current substance use type: does not use during the past year weight has: other well-balanced diet: daily or most days daily servings fruits/ve-4 caffeine: Yes (1-2 caffeine drinks per day) eating out: 1-3 times/week frequency: 3-4 times per week duration: other Exam Initial Vital Signs Initial Vital Signs: Vital Signs Temperature 98.3 F 10/10/18 05:50 Pulse Rate 120 H 10/10/18 05:50 Respiratory Rate 18 10/10/18 05:50 Blood Pressure 155/92 H 10/10/18 05:50 Pulse Oximetry 98 10/10/18 05:50 Const General: cooperative, comfortable, well developed, well groomed and No acute distress Resp Effort & Inspection: normal respiratory effort Skin Other: Patient with what is consistent with a yeast infection of the skin in the area under her lower abdomen over the scar. There are no breaks in the skin. No drainage. No blisters. Neuro General: alert and awake Cognition: normal cognition Speech: speech normal Extrem General: normal to inspection Course Vital Signs - 8 hr 10/10/18 05:50 Temperature 98.3 F Pulse Rate 120 H Respiratory Rate 18 Blood Pressure 155/92 H Pulse Oximetry 98 Medical Decision Making [facility] Narrative Medical decision making narrative: Exam consistent with a yeast infection of the skin. This is over the area of the lower abdomen. Prescribed nystatin cream. She was given return precautions and follow-up instructions. She expressed understanding and agreement plan Discharge Plan Departure Patient Disposition: Home Clinical Impression: Candidal dermatitis Instructions: Yeast Infection-Skin Activity Restrictions/Additional Instructions: Use the cream as directed until the rash is gone. Would recommend that you keep the area uncovered and exposed to the air as much as possible. Also recommend you keep the skin is dry as possible in this area. Return to the emergency department for any new or worsening symptoms Prescriptions: New nystatin 100,000 unit/gram cream 1 applictn TOP TID 7 Days Qty: 30 RF: 0 No Action levonorgestrel [Mirena] 1 EACH intrauterine device 52 mg INTRAU Qty: 0 RF: 0 ibuprofen 200 mg capsule 400 mg PO Q4-6H PRNRF: 0 drospirenone-ethinyl estradiol 3-0.03 mg tablet 1 tab PO DAILY Qty: 28 RF: 11 Referrals: Shana Longoria DO [Primary Care Provider] -
== END 2018-10-10 06:07 | disposition home or self-care (01) ==
PROVIDERS: Emergency Provider Emergency Medicine; Family Provider Family Medicine; PCP Family Medicine
DX: B37.2 Candidiasis of skin and nail (principal)
CPT/HCPCS: 99282; 99283

== ENCOUNTER → 2019-03-06 15:16 | Outpatient (CLI) | payer OTHER, SELFPAY | PROVIDERS: PCP Family Medicine | DX: Z23 Encounter for immunization (principal) | CPT/HCPCS: 90471; 90686 ==

== ENCOUNTER 2019-04-20 00:49 | Emergency (ER) | payer OTHER, SELFPAY ==
--- NOTE | 2019-04-20 00:51 | ED.LOWEXIN ---
HPI - Extremity Injury (Lower) General Chief Complaint: Extremity Injury, Lower Stated Complaint: fell on right knee Time Seen by Provider: 04/20/19 00:51 Source: patient Mode of arrival: Ambulatory Limitations: no limitations History of Present Illness HPI Narrative: 24-year-old female daily smoker with history of obesity presents with a chief complaint of a fall right knee injury suffered while working 1 week ago. She states she tripped over a power cord and fell forward, landing directly on her R knee. She had immediate pain which was worse with motion, palpation and walking. It is greatly improved over the course of the week but she still has pain. She has been trying to get seen for the week given the L&I implications, but has been getting shuffled around and came to the ED so she could be seen. She denies numbness, tingling or weakness. Related Data Home Medications Medication Instructions Recorded Confirmed ibuprofen 200 mg capsule 400 mg PO Q4-6H PRN 09/06/17 11/24/18 Previous Rx's Medication Instructions Recorded doxycycline monohydrate 100 mg 100 mg PO BID #10 cap 10/11/18 capsule ketoconazole 2 % topical cream 1 applictn TOP BID #60 gram 10/11/18 nystatin 100,000 unit/gram topical 1 applictn TOP BID #30 gram 11/24/18 powder Allergies Allergy/AdvReac Type Severity Reaction Status Date / Time spironolactone Allergy Intermediate itching Verified 11/24/18 12:32 amoxicillin Allergy Mild Verified 11/24/18 12:32 Review of Systems Constitutional Constitutional: Denies chills, Denies fatigue, Denies fever(s), Denies frequent falls, Denies lethargy and Denies weakness Eyes Eyes: Denies change in vision, Denies eye discharge, Denies irritation and Denies loss of vision ENT Ears, Nose, Mouth, and Throat: Denies change in voice, Denies dizziness, Denies neck pain, Denies sore throat and Denies throat swelling Cardiovascular Cardiovascular: Denies chest pain, Denies irregular heart rhythm, Denies lightheadedness, Denies palpitations, Denies dyspnea, Denies dyspnea on exertion and Denies orthopnea Respiratory Respiratory: Denies cough, Denies dyspnea, Denies dyspnea on exertion and Denies wheezing Gastrointestinal Gastrointestinal: Denies abdominal pain, Denies change in bowel habits, Denies diarrhea, Denies nausea and Denies vomiting Genitourinary Genitourinary: Denies hematuria, Denies flank pain, Denies urinary incontinence and Denies urinary urgency Musculoskeletal Musculoskeletal: Denies back pain, Reports limited range of motion, Denies muscle weakness, Denies neck pain, Denies numbness and Denies tingling Integumentary/Breasts Skin/Breast: Denies pruritus, Denies erythema, Denies rash and Denies wounds Neurologic Neurologic: Denies behavioral changes, Denies confusion, Denies dizziness, Denies frequent falls, Denies loss of vision, Denies numbness, Denies tingling and Denies weakness Psychiatric Psychiatric: Denies anxiety, Denies behavioral changes, Denies confusion, Denies depression, Denies homicidal ideation and Denies suicidal ideation Endocrine Endocrine: Denies fatigue, Denies flushing and Denies palpitations Hematologic/Lymphatic Hematologic/Lymphatic: Denies easy bruising Allergic/Immunologic Allergic/Immunologic: Denies urticaria, Denies throat swelling and Denies wheezing Patient History Medical History Abnormal Pap smear of cervix (Chronic ~2011) Acne (Chronic ~2003) Anxiety and depression (Acute ~2014) Chicken pox (Resolved ~1998) Chlamydia (Acute ~2011) Chronic back pain (Chronic ~2014) Chronic ear infection (Chronic ~1993) Headache (Chronic ~2013) Hearing deficit (Chronic) Heavy menstrual period (Chronic ~2012) Human papilloma virus (Chronic ~2011) Irregular menstrual cycle (Chronic ~2012) Migraines (Acute ~2013) Painful menstruation (Chronic ~2012) Shoulder pain (Chronic ~2014) Vision disorder (Chronic) Surgical History History of epidural anesthesia (Resolved) Hx of tympanostomy tubes (Acute ~1994) Status post delivery (03/12/08) Family History Grandfather Stroke Diabetes mellitus Mother Age: 56 Heart disease Hypertension Diabetes mellitus Father No problems noted. Grandmother No problems noted. Grandmother No problems noted. Social History number of children: 1 household members: children pets and animals: Yes education level: high school occupational status: employed [employer]: Unknown leisure activities: other other: Outdoors, zoos, lakes seatbelt use: always helmet use: Yes water heater temp set < 120 deg: Yes working smoke detector in home: Yes fire extinguisher in home: Yes carbon monox detector in home: Yes firearms in home: No Smoking Status: Current every day smoker quit status: considering quitting alcohol intake: current substance use type: does not use during the past year weight has: other well-balanced diet: daily or most days daily servings fruits/ve-4 caffeine: Yes (1-2 caffeine drinks per day) eating out: 1-3 times/week frequency: 3-4 times per week duration: other Smoking Status: Current every day smoker alcohol intake frequency: 0-2 drinks per day Substance Use Type: does not use Exam Narrative Exam Narrative: GEN: AOx3 and in mild distress, no obvious pain with ambulation upon entering the room from waiting area. EYES: Pupils are equal, round, and reactive to light and accommodation. Extraoccular muscles are intact bilaterally. There is no subconjunctival hemorrhage or exudate. CHEST: Lungs are clear to auscultation bilaterally and free of wheezes, rales, or rhonchi. Heart rate is regular rhythm, there are no murmurs, clicks, rubs, or gallops. There is no chest wall tenderness. ABD: Abdomen is soft and nontender. There is no guarding or rebound. Bowel sounds are normal in all 4 quadrants. There is no mass or organomegaly. EXT: Full but painful ROM of R knee with some ecchymosis over patella. Appears to be old given the yellowing edges. No effusion or ligamentous instability. Sensation and cap refill in tact. SKIN: Warm, pink, and dry. No erythema or rash Initial Vital Signs Initial Vital Signs: Vital Signs Temperature 99.3 F 04/20/19 00:59 Pulse Rate 87 04/20/19 00:59 Respiratory Rate 15 04/20/19 00:59 Blood Pressure 151/89 H 04/20/19 00:59 Pulse Oximetry 95 04/20/19 00:59 Course Orders Ordered: ED Orders 04/20/19 00:59 XR knee RT 3V Stat Vital Signs Vital signs: Vital Signs - 8 hr 04/20/19 00:59 Temperature 99.3 F Pulse Rate 87 Respiratory Rate 15 Blood Pressure 151/89 H Pulse Oximetry 95 MDM - Extremity Injury (Lower) Imaging Data Extremity x-ray #1: Attestation: I personally reviewed and interpreted this imaging study as follows: My Impression: No obvious bony abnormality Discharge Plan Departure Patient Disposition: Home Clinical Impression: Contusion of knee, right Qualifiers: Encounter type: initial encounter Qualified Code(s): S80.01XA - Contusion of right knee, initial encounter Instructions: DI for Knee Pain Activity Restrictions/Additional Instructions: *You have been diagnosed with [ right knee contusion ] *What to do: *Take medications as directed: tylenol or motrin for pain *Follow up with your primary care provider in 2-3 days, call for an appointment. Let them know you were seen in the Emergency Department and that we ask that you be seen in follow up *Return to ER if you should have any new, worsening or concerning symptoms Prescriptions: No Action ibuprofen 200 mg capsule 400 mg PO Q4-6H PRNRF: 0 ketoconazole 2 % cream 1 applictn TOP BID Qty: 60 RF: 0 doxycycline monohydrate 100 mg capsule 100 mg PO BID Qty: 10 RF: 0 nystatin 100,000 unit/gram powder 1 applictn TOP BID Qty: 30 RF: 0 Referrals: Shana Longoria DO [Primary Care Provider] -
[2019-04-20 00:59] VITALS: BP 151/89; PULSE 87; RESP 15; TEMP 37.4; O2SAT 95; BMI 36.7
--- NOTE | 2019-04-20 00:59 | DI.RAD.S_ITS ---
PROCEDURE: XR KNEE RT 3V INDICATIONS: fall with knee pain TECHNIQUE: 3 views of the knee were acquired. COMPARISON: None. FINDINGS: Bones: No fractures or dislocations. No suspicious bony lesions. Soft tissues: No joint effusion. No suspicious soft tissue calcifications. IMPRESSION: No fracture. No osseous lesion. If symptoms and/or clinical suspicion for pathology persists, further assessment with repeat radiographs (7-10 days) or advanced imaging (e.g. CT, MRI or bone scan) may be helpful. Dictated by: Betsy Lieberman MD, PhD on 04/20/2019 at 7:27 Approved by: Betsy Lieberman MD, PhD on 04/20/2019 at 7:29
== END 2019-04-20 01:28 | disposition home or self-care (01) ==
PROVIDERS: Emergency Provider Emergency Medicine; PCP Family Medicine
DX: S80.01XA Contusion of right knee, initial encounter (principal); W01.0XXA Fall on same level from slipping, tripping and stumbling without subsequent striking against object, initial encounter; Y99.0 Civilian activity done for income or pay
CPT/HCPCS: 73562; 99283

== ENCOUNTER → 2020-03-04 15:15 | Outpatient (CLI) | payer OTHER, SELFPAY | PROVIDERS: PCP Family Medicine; Referring Provider Internal Medicine; Visit Provider Internal Medicine | DX: Z23 Encounter for immunization (principal) | CPT/HCPCS: 90471; 90686 ==

== ENCOUNTER → 2020-06-20 10:39 | Outpatient (CLI) | payer OTHER, SELFPAY ==
[2020-06-20 11:32] LABS: Add Manual Diff / Slide Review NO; Basophils Absolute Auto 100 /uL (0-100); Basophils Percent Auto 1.1 % (0-2); Eosinophils Absolute Auto 200 /uL (0-450); Eosinophils Percent Auto 3.2 % (2-4); Hematocrit 44.7 % (36-46); Hemoglobin 15.4 g/dL (12.0-16.0); Lymphocytes Absolute Auto 2300 /uL (1100-4500); Lymphocytes Percent Auto 32.2 % (25-40); Mean Corpuscular HGB Conc 34.6 % (30-36); Mean Corpuscular Hemoglobin 30.3 PG (26-34); Mean Corpuscular Volume 87.5 fL (80-100); Monocytes Absolute Auto 600 /uL (0-900); Monocytes Percent Auto 8.2 % (3-14); Neutrophils Absolute Auto 3900 /uL (1500-7000); Neutrophils Percent Auto 55.3 % (50-75); Platelet Count 308 X10^3/uL (150-400); Red Cell Distribution Width 12.8 % (11.6-14.8); White Blood Cell Count 7.1 X10^3/uL (4.5-11.0)
[2020-06-20 11:39] LABS: Hemoglobin A1C% w Est Avg Glu 5.6 % (4.0-6.0)
[2020-06-20 11:54] LABS: Alanine Aminotransferase 23 IU/L (<35); Albumin 4.4 g/dL (3.5-5.0); Albumin Globulin Ratio 1.5 (1.0-2.8); Alkaline Phosphatase 59 U/L (38-126); Aspartate Aminotransferase 24 IU/L (14-36); BUN Creatinine Ratio 21.1 (6-22); Bilirubin Total 0.3 mg/dL (0.2-1.3); Blood Urea Nitrogen 16 mg/dL (7-17); Calcium 9.2 mg/dL (8.4-10.2); Carbon Dioxide 25 mmol/L (22-32); Chloride 104 mmol/L (98-107); Cholesterol 160 mg/dL (140-199); Estimated Glomerular Filt Rate > 60.0 mL/min (>60); Glucose 105 mg/dL (70-100); HDL Cholesterol 42 mg/dL (40-60); HEMOLYSIS < 15 (0-50); LDL Cholesterol Calculated 99 mg/dL (<100); Potassium 4.3 mmol/L (3.4-5.1); Sodium 136 mmol/L (137-145); Total Protein 7.4 g/dL (6.3-8.2); Triglycerides 93 mg/dL (35-150)
[2020-06-20 11:55] LABS: HEMOLYSIS < 15 (0-50); Iron 84 ug/dL (37-170)
[2020-06-20 12:01] LABS: Vitamin D 25 Hydroxy (D3) 21.3 ng/mL (30.0-100.0)
[2020-06-20 12:05] LABS: Free T3, Triiodothyronine Free 3.94 pg/mL (2.77-5.27); Free T4, Direct Thyroxine 0.98 ng/dL (0.78-2.19)
[2020-06-20 12:06] LABS: Percent Iron Saturation 27 % (15-50); Total Iron Binding Capacity 312 ug/dL (265-497)
[2020-06-20 12:46] LABS: Transferrin 245 mg/dL (206-381)
[2020-06-20 13:38] LABS: Thyroid Stimulating Hormone 0.575 uIU/mL (0.47-4.68)
== END ==
PROVIDERS: PCP Family Medicine; Referring Provider Family Medicine; Visit Provider Family Medicine
DX: E28.2 Polycystic ovarian syndrome (principal); E66.9 Obesity, unspecified; N92.0 Excessive and frequent menstruation with regular cycle
CPT/HCPCS: 36415; 80053; 80061; 82306; 83036; 83540; 83550; 84439; 84443; 84481; 85025

== ENCOUNTER 2020-12-30 13:53 | Emergency (ER) | payer OTHER, SELFPAY ==
[2020-12-30 13:58] VITALS: BP 149/84; PULSE 90; RESP 18; TEMP 36.9; O2SAT 100
--- NOTE | 2020-12-30 15:13 | ED_ITS ---
HPI - Female Genitourinary <Dmitry Wiknler PA-C - Last Filed: 12/30/20 17:51> General Chief complaint: Vaginal Bleeding Stated complaint: heavily bleeding, dr knight. Time Seen by Provider: 12/30/20 14:54 Source: patient Mode of arrival: Ambulatory History of Present Illness HPI Narrative: 25-year-old female with past medical history PCOS presents to the ED 1 day heavy vaginal bleeding. Patient reports that her period came on this morning, but the bleeding is extremely heavy. She reports soaking through a tampon in 45 minutes. Patient endorses mild cramping. Patient also endorses multiple clots today. Patient reports that she has normal periods that last for 4 days, every 25-27 days. Patient denies taking any exogenous hormones. Denies IUD use. Takes metformin for PCOS. Patient called her PCP this morning for the bleeding, who directed her to the ED for further evaluation. Related Data Home Medications Medication Instructions Recorded Confirmed [id number] 250 1 tab PO Q4-6H PRN 06/19/20 08/27/20 mg-250 mg-65 mg tablet (Excedrin Migraine) multivitamin with minerals 1 tab PO DAILY 06/19/20 08/27/20 (Hair,Skin and Nails) naproxen sodium 220 mg capsule 220 mg PO BID PRN 06/19/20 08/27/20 (Aleve) Previous Rx's Medication Instructions Recorded metformin 500 mg tablet 500 mg PO DAILY #30 tab 07/22/20 medroxyprogesterone 10 mg tablet 20 mg PO TID 3 Days #18 tab 12/30/20 Allergies Allergy/AdvReac Type Severity Reaction Status Date / Time spironolactone Allergy Intermediate itching Verified 08/27/20 09:10 amoxicillin Allergy Mild Verified 08/27/20 09:10 Review of Systems <Dmitry Winkler PA-C - Last Filed: 12/30/20 17:51> Constitutional Constitutional: Denies chills, Denies fatigue, Denies fever(s), Denies frequent falls, Denies lethargy and Denies weakness Eyes Eyes: Denies change in vision, Denies eye discharge, Denies irritation and Denies loss of vision ENT Ears, Nose, Mouth, and Throat: Denies change in voice, Denies dizziness, Denies neck pain, Denies sore throat and Denies throat swelling Cardiovascular Cardiovascular: Denies chest pain, Denies irregular heart rhythm, Denies lightheadedness, Denies palpitations, Denies dyspnea, Denies dyspnea on exertion and Denies orthopnea Respiratory Respiratory: Denies cough, Denies dyspnea, Denies dyspnea on exertion and Denies wheezing Gastrointestinal Gastrointestinal: Denies abdominal pain, Denies change in bowel habits, Denies diarrhea, Denies nausea and Denies vomiting Genitourinary Genitourinary: Reports abnormal menses Comments: Heavy vaginal bleeding with clots. Pelvic cramping Musculoskeletal Musculoskeletal: Denies neck pain and Denies numbness Integumentary/Breasts Skin/Breast: Denies pruritus, Denies erythema, Denies rash and Denies wounds Neurologic Neurologic: Denies behavioral changes, Denies confusion, Denies dizziness, Denies frequent falls, Denies loss of vision, Denies numbness and Denies weakness Psychiatric Psychiatric: Denies anxiety, Denies behavioral changes, Denies confusion, Denies depression, Denies homicidal ideation and Denies suicidal ideation Endocrine Endocrine: Denies fatigue, Denies flushing and Denies palpitations Hematologic/Lymphatic Hematologic/Lymphatic: Denies easy bruising Allergic/Immunologic Allergic/Immunologic: Denies urticaria, Denies throat swelling and Denies wheezing Patient History <Dmitry Winkler PA-C - Last Filed: 12/30/20 17:51> Medical History Abnormal Pap smear of cervix (~2011) Acne (~2003) Acute right-sided low back pain with right-sided sciatica Anxiety and depression (~2014) Chicken pox (~1998) Chlamydia (~2011) Chronic back pain (~2014) Chronic ear infection (~1993) Headache (~2013) Hearing deficit Heavy menstrual period (~2012) Human papilloma virus (~2011) Irregular menstrual cycle (~2012) Midline low back pain with bilateral sciatica Migraines (~2013) Painful menstruation (~2012) PCOS (polycystic ovarian syndrome) Pelvic somatic dysfunction Sacral region somatic dysfunction Shoulder pain (~2014) Spasm of back muscles Vision disorder Vitamin D deficiency Surgical History History of epidural anesthesia Hx of tympanostomy tubes (~1994) Status post delivery (03/12/08) Family History Grandfather Stroke Diabetes mellitus Mother Age: 58 Heart disease Hypertension Diabetes mellitus Father No problems noted. Grandmother No problems noted. Grandmother No problems noted. alcohol intake frequency: 0-2 drinks per day Substance Use Type: does not use Exam <Dmitry Winkler PA-C - Last Filed: 12/30/20 17:51> Initial Vital Signs Initial Vital Signs: Vital Signs Temperature 98.5 F 12/30/20 13:58 Pulse Rate 90 12/30/20 13:58 Respiratory Rate 18 12/30/20 13:58 Blood Pressure 149/84 H 12/30/20 13:58 Pulse Oximetry 100 12/30/20 13:58 Const General: cooperative HENMT Head: normocephalic and atraumatic Ears: external ears normal and TM's normal bilaterally Nose: external nose normal and No nasal discharge Face and sinus: sinuses nontender, face symmetric, no sinus tenderness and No dry mucous membranes Mouth: oral mucosae normal and moist mucous membranes Teeth and gingiva: dentition normal Throat: tonsils normal and uvula midline Eyes General: appearance normal, both eyes and all related structures Eyelids: eyelids normal Conjunctivae: conjunctivae normal Sclera: sclerae normal Pupils: PERRL EOM: EOM intact bilaterally Neck Neck: normal visual inspection, trachea midline, No lymphadenopathy, No midline deformity and No JVD Lymphatic: No lymphedema Chest Chest: normal inspection of the chest Resp Effort & Inspection: normal respiratory effort, able to speak in complete sente nces, no respiratory distress and no use of accessory muscles Auscultation: clear to auscultation bilaterally, no rales, no rhonchi and no wheezes Cardio Rate: regular rate Rhythm: regular rhythm Heart Sounds: no click, no gallops, no murmurs and no rubs Pulses: normal peripheral pulses GI Inspection: non-distended Palpation: soft, no hepatosplenomegaly, No guarding, No pulsatile mass and No tender Auscultation: normal bowel sounds Other: Abdomen is soft, nondistended, non tender to palpation General: No CVA tenderness Other: Speculum exam shows closed Os, not friable. Bleeding with clots visible from the os. No vaginal lesions/lacerations. No purulent discharge. Back/Spine/Pelvis Back: No CVA tenderness Cervical Spine: cervical ROM normal and No pain with cervical ROM Thoracic/Lumbar Spine: thoracic and lumbar spine normal to inspection Skin General: no rashes or lesions noted, No jaundice and No petechiae Neuro General: patient alert, patient oriented x3, gait normal and no focal motor deficits Speech: speech normal Extrem General: full ROM, no clubbing, cyanosis or edema, no pedal edema and no calf tenderness Psych Appearance: well kempt Mental Status: mental status grossly normal Attitude: cooperative Thought Content: normal and suicidality Judgment: judgment good <Bruce Carpio DO - Last Filed: 12/31/20 06:57> Initial Vital Signs Initial Vital Signs: Vital Signs Temperature 98.5 F 12/30/20 13:58 Pulse Rate 90 12/30/20 13:58 Respiratory Rate 18 12/30/20 13:58 Blood Pressure 149/84 H 12/30/20 13:58 Pulse Oximetry 100 12/30/20 13:58 Course <Dmitry Winkler PA-C - Last Filed: 12/30/20 17:51> Course Course Narrative: HCG negative, labs within normal limits. Discussed options with patient, patient opted for treatment with medroxyprogesterone. Will give medroxyprogesterone 150 mg IM. Will give prescription for medroxyprogesterone 20 mg p.o. x3 days, dc home. Discussed ED return precautions. Follow-up with blow pit operator. Orders Ordered: Discontinued Medications Medroxyprogesterone Acetate (Medroxyprogesterone 150 Mg/Ml Syringe) 150 mg IM NOW ONE Stop: 12/30/20 17:00 Last Admin: 12/30/20 17:27 Dose: 150 mg Documented by: BARBARA Vital Signs Vital signs: Vital Signs - 8 hr 12/30/20 13:58 Temperature 98.5 F Pulse Rate 90 Respiratory Rate 18 Blood Pressure 149/84 H Pulse Oximetry 100 <Bruce Carpio DO - Last Filed: 12/31/20 06:57> Orders Ordered: Discontinued Medications Medroxyprogesterone Acetate (Medroxyprogesterone 150 Mg/Ml Syringe) 150 mg IM NOW ONE Stop: 12/30/20 17:00 Last Admin: 12/30/20 17:27 Dose: 150 mg Documented by: BARBARA Vital Signs Vital signs: Vital Signs - 8 hr 12/30/20 13:58 Temperature 98.5 F Pulse Rate 90 Respiratory Rate 18 Blood Pressure 149/84 H Pulse Oximetry 100 MDM - Female Genitourinary <Dmitry Winkler PA-C - Last Filed: 12/30/20 17:51> Medical Records Attestation: I reviewed the patient's medical records. Lab Data Attestation: I reviewed the patient's lab results. Lab results narrative: Labs within normal limits, hCG negative, UA negative for UTI Result diagrams: 12/30/20 15:25 12/30/20 15:25 Labs: Lab Results 12/30/20 12/30/20 12/30/20 Range/Units 15:25 15:25 15:25 WBC 10.1 (4.5-11.0) X10^3/uL RBC 4.98 (4.0-5.2) X10^6/uL Hgb 14.9 (12.0-16.0) g/dL Hct 43.6 (36-46) % MCV 87.7 (80-100) fL MCH 29.9 (26-34) PG MCHC 34.2 (30-36) % RDW 12.5 (11.6-14.8) % Plt Count 352 (150-400) X10^3/uL Neut % (Auto) 62.6 (50-75) % Lymph % (Auto) 26.9 (25-40) % Terrell % (Auto) 6.7 (3-14) % Eos % (Auto) 3.5 (2-4) % Baso % (Auto) 0.3 (0-2) % Neut # (Auto) 6300 (1710-5989) /uL Lymph # (Auto) 2700 (9820-9281) /uL Terrell # (Auto) 700 (0-900) /uL Eos # (Auto) 400 (0-450) /uL Baso # (Auto) 0 (0-100) /uL PT 10.4 (10.1-12.7) SECONDS INR 0.9 (0.9-1.3) APTT 30 (26.4-36.2) SECONDS Sodium 141 (137-145) mmol/L Potassium 3.8 (3.4-5.1) mmol/L Chloride 105 (98-107) mmol/L Carbon Dioxide 27 (22-32) mmol/L BUN 16 (7-17) mg/dL Creatinine 0.71 (0.52-1.04) mg/dL Estimated GFR > 60.0 (>60) mL/min BUN/Creatinine Ratio 22.5 H (6-22) Glucose 100 (70-100) mg/dL Calcium 9.6 (8.4-10.2) mg/dL Total Bilirubin 0.2 (0.2-1.3) mg/dL AST 28 (14-36) IU/L ALT 33 (<35) IU/L Alkaline Phosphatase 63 (38-126) U/L Total Protein 7.8 (6.3-8.2) g/dL Albumin 4.6 (3.5-5.0) g/dL Globulin 3.2 (1.7-4.1) g/dL Albumin/Globulin Ratio 1.4 (1.0-2.8) Urine RBC (0-5/HPF) Urine WBC (0-5/HPF) Ur Squamous Epith Cells (0-5/HPF) Amorphous Sediment Urine Bacteria (None) Ur Culture Indicated? 12/30/20 Range/Units 15:25 WBC (4.5-11.0) X10^3/uL RBC (4.0-5.2) X10^6/uL Hgb (12.0-16.0) g/dL Hct (36-46) % MCV (80-100) fL MCH (26-34) PG MCHC (30-36) % RDW (11.6-14.8) % Plt Count (150-400) X10^3/uL Neut % (Auto) (50-75) % Lymph % (Auto) (25-40) % Terrell % (Auto) (3-14) % Eos % (Auto) (2-4) % Baso % (Auto) (0-2) % Neut # (Auto) (0664-2761) /uL Lymph # (Auto) (2859-6602) /uL Terrell # (Auto) (0-900) /uL Eos # (Auto) (0-450) /uL Baso # (Auto) (0-100) /uL PT (10.1-12.7) SECONDS INR (0.9-1.3) APTT (26.4-36.2) SECONDS Sodium (137-145) mmol/L Potassium (3.4-5.1) mmol/L Chloride (98-107) mmol/L Carbon Dioxide (22-32) mmol/L BUN (7-17) mg/dL Creatinine (0.52-1.04) mg/dL Estimated GFR (>60) mL/min BUN/Creatinine Ratio (6-22) Glucose (70-100) mg/dL Calcium (8.4-10.2) mg/dL Total Bilirubin (0.2-1.3) mg/dL AST (14-36) IU/L ALT (<35) IU/L Alkaline Phosphatase (38-126) U/L Total Protein (6.3-8.2) g/dL Albumin (3.5-5.0) g/dL Globulin (1.7-4.1) g/dL Albumin/Globulin Ratio (1.0-2.8) Urine RBC 30-100/hpf H (0-5/HPF) Urine WBC 1-5/hpf (0-5/HPF) Ur Squamous Epith Cells 1-5 /hpf (0-5/HPF) Amorphous Sediment 1+ Urine Bacteria Few (2-10) H (None) Ur Culture Indicated? Specimen cultured Point of Care Testing Test Results Negative Urine Dip Bedside Urine Glucose Negative Bedside Urine Bilirubin - Negative Bedside Urine Ketone - Negative Urine Specific Searcy 1.015 Bedside Urine Occult Blood +++ Bedside Urine pH 6.0 Bedside Urine Protein - Negative Bedside Urine Urobilinogen - Negative Bedside Urine Nitrite - Negative Bedside Urine Leukocytes - Negative Esterase MDM Narrative Medical decision making narrative: 25-year-old female with past medical history PCOS presents to the ED 1 day heavy vaginal bleeding. Concern for versus miscarriage versus ectopic versus dysfunctional uterine bleeding versus vaginal trauma/laceration versus bleeding dyscrasias. Will order labs, coags, UA, hCG. Will reassess. <Bruce Carpio DO - Last Filed: 12/31/20 06:57> Lab Data Labs: Lab Results 12/30/20 12/30/20 12/30/20 Range/Units 15:25 15:25 15:25 WBC 10.1 (4.5-11.0) X10^3/uL RBC 4.98 (4.0-5.2) X10^6/uL Hgb 14.9 (12.0-16.0) g/dL Hct 43.6 (36-46) % MCV 87.7 (80-100) fL MCH 29.9 (26-34) PG MCHC 34.2 (30-36) % RDW 12.5 (11.6-14.8) % Plt Count 352 (150-400) X10^3/uL Neut % (Auto) 62.6 (50-75) % Lymph % (Auto) 26.9 (25-40) % Terrell % (Auto) 6.7 (3-14) % Eos % (Auto) 3.5 (2-4) % Baso % (Auto) 0.3 (0-2) % Neut # (Auto) 6300 (1704-7660) /uL Lymph # (Auto) 2700 (1240-8047) /uL Terrell # (Auto) 700 (0-900) /uL Eos # (Auto) 400 (0-450) /uL Baso # (Auto) 0 (0-100) /uL PT 10.4 (10.1-12.7) SECONDS INR 0.9 (0.9-1.3) APTT 30 (26.4-36.2) SECONDS Sodium 141 (137-145) mmol/L Potassium 3.8 (3.4-5.1) mmol/L Chloride 105 (98-107) mmol/L Carbon Dioxide 27 (22-32) mmol/L BUN 16 (7-17) mg/dL Creatinine 0.71 (0.52-1.04) mg/dL Estimated GFR > 60.0 (>60) mL/min BUN/Creatinine Ratio 22.5 H (6-22) Glucose 100 (70-100) mg/dL Calcium 9.6 (8.4-10.2) mg/dL Total Bilirubin 0.2 (0.2-1.3) mg/dL AST 28 (14-36) IU/L ALT 33 (<35) IU/L Alkaline Phosphatase 63 (38-126) U/L Total Protein 7.8 (6.3-8.2) g/dL Albumin 4.6 (3.5-5.0) g/dL Globulin 3.2 (1.7-4.1) g/dL Albumin/Globulin Ratio 1.4 (1.0-2.8) Urine RBC (0-5/HPF) Urine WBC (0-5/HPF) Ur Squamous Epith Cells (0-5/HPF) Amorphous Sediment Urine Bacteria (None) Ur Culture Indicated? 12/30/20 Range/Units 15:25 WBC (4.5-11.0) X10^3/uL RBC (4.0-5.2) X10^6/uL Hgb (12.0-16.0) g/dL Hct (36-46) % MCV (80-100) fL MCH (26-34) PG MCHC (30-36) % RDW (11.6-14.8) % Plt Count (150-400) X10^3/uL Neut % (Auto) (50-75) % Lymph % (Auto) (25-40) % Terrell % (Auto) (3-14) % Eos % (Auto) (2-4) % Baso % (Auto) (0-2) % Neut # (Auto) (5443-5025) /uL Lymph # (Auto) (1280-2862) /uL Terrell # (Auto) (0-900) /uL Eos # (Auto) (0-450) /uL Baso # (Auto) (0-100) /uL PT (10.1-12.7) SECONDS INR (0.9-1.3) APTT (26.4-36.2) SECONDS Sodium (137-145) mmol/L Potassium (3.4-5.1) mmol/L Chloride (98-107) mmol/L Carbon Dioxide (22-32) mmol/L BUN (7-17) mg/dL Creatinine (0.52-1.04) mg/dL Estimated GFR (>60) mL/min BUN/Creatinine Ratio (6-22) Glucose (70-100) mg/dL Calcium (8.4-10.2) mg/dL Total Bilirubin (0.2-1.3) mg/dL AST (14-36) IU/L ALT (<35) IU/L Alkaline Phosphatase (38-126) U/L Total Protein (6.3-8.2) g/dL Albumin (3.5-5.0) g/dL Globulin (1.7-4.1) g/dL Albumin/Globulin Ratio (1.0-2.8) Urine RBC 30-100/hpf H (0-5/HPF) Urine WBC 1-5/hpf (0-5/HPF) Ur Squamous Epith Cells 1-5 /hpf (0-5/HPF) Amorphous Sediment 1+ Urine Bacteria Few (2-10) H (None) Ur Culture Indicated? Specimen cultured Point of Care Testing Test Results Negative Urine Dip Bedside Urine Glucose Negative Bedside Urine Bilirubin - Negative Bedside Urine Ketone - Negative Urine Specific Searcy 1.015 Bedside Urine Occult Blood +++ Bedside Urine pH 6.0 Bedside Urine Protein - Negative Bedside Urine Urobilinogen - Negative Bedside Urine Nitrite - Negative Bedside Urine Leukocytes - Negative Esterase Discharge Plan Departure Patient Disposition: Home Clinical Impression: Abnormal vaginal bleeding Instructions: DI for Vaginal Bleeding Activity Restrictions/Additional Instructions: You were evaluated for heavy vaginal bleeding in the ED today. Your labs were normal, test negative. You were treated in the ED with medroxyprogesterone. Please take 20 mg of medroxyprogesterone 3 times a day by mouth for 3 days. Please follow-up with your blow pit operator. Return to the ED if your symptoms worsen, you experience lightheadedness, shortness of breath, increased bleeding. Prescriptions: New medroxyprogesterone 10 mg tablet 20 mg PO TID 3 Days Qty: 18 RF: 0 No Action metformin 500 mg tablet 500 mg PO DAILY Qty: 30 RF: 5 naproxen sodium [Aleve] 220 mg capsule 220 mg PO BID PRNRF: 0 Excedrin Migraine 250-250-65 mg tablet 1 tab PO Q4-6H PRNRF: 0 multivitamin with minerals [Hair,Skin and Nails] Tablet 1 tab PO DAILY RF: 0 Referrals: Vern Pineda DO [Primary Care Provider] - <Bruce Carpio DO - Last Filed: 12/31/20 06:57> Cosign ED Attending Kortney Attestation: I was immediately available in the department for consultation. This documentation has been reviewed and I agree with assessment and plan. Supervised by Bruce Carpio DO
[2020-12-30 15:35] LABS: Add Manual Diff / Slide Review NO; Basophils Absolute Auto 0 /uL (0-100); Basophils Percent Auto 0.3 % (0-2); Eosinophils Absolute Auto 400 /uL (0-450); Eosinophils Percent Auto 3.5 % (2-4); Hematocrit 43.6 % (36-46); Hemoglobin 14.9 g/dL (12.0-16.0); Lymphocytes Absolute Auto 2700 /uL (1100-4500); Lymphocytes Percent Auto 26.9 % (25-40); Mean Corpuscular HGB Conc 34.2 % (30-36); Mean Corpuscular Hemoglobin 29.9 PG (26-34); Mean Corpuscular Volume 87.7 fL (80-100); Monocytes Absolute Auto 700 /uL (0-900); Monocytes Percent Auto 6.7 % (3-14); Neutrophils Absolute Auto 6300 /uL (1500-7000); Neutrophils Percent Auto 62.6 % (50-75); Platelet Count 352 X10^3/uL (150-400); Red Blood Cell Count 4.98 X10^6/uL (4.0-5.2); Red Cell Distribution Width 12.5 % (11.6-14.8); White Blood Cell Count 10.1 X10^3/uL (4.5-11.0)
[2020-12-30 15:43] LABS: INR 0.9 (0.9-1.3); Prothrombin Time 10.4 SECONDS (10.1-12.7)
[2020-12-30 15:45] LABS: PTT Partial Thromboplastin Tim 30 SECONDS (26.4-36.2)
[2020-12-30 15:52] LABS: Alanine Aminotransferase 33 IU/L (<35); Albumin 4.6 g/dL (3.5-5.0); Albumin Globulin Ratio 1.4 (1.0-2.8); Alkaline Phosphatase 63 U/L (38-126); Aspartate Aminotransferase 28 IU/L (14-36); BUN Creatinine Ratio 22.5 (6-22); Bilirubin Total 0.2 mg/dL (0.2-1.3); Blood Urea Nitrogen 16 mg/dL (7-17); Calcium 9.6 mg/dL (8.4-10.2); Carbon Dioxide 27 mmol/L (22-32); Chloride 105 mmol/L (98-107); Estimated Glomerular Filt Rate > 60.0 mL/min (>60); Globulin 3.2 g/dL (1.7-4.1); Glucose 100 mg/dL (70-100); HEMOLYSIS < 15 (0-50); Potassium 3.8 mmol/L (3.4-5.1); Sodium 141 mmol/L (137-145); Total Protein 7.8 g/dL (6.3-8.2)
[2020-12-30 15:57] LABS: Amorphous Sediment Urine 1+; Bacteria Urine Few (2-10); Culture Indicated Urine Specimen Cultured; RBC Urine 30-100/HPF (0-5/HPF); Squamous Epithelial Cell Urine 1-5 /HPF (0-5/HPF); WBC Urine 1-5/HPF (0-5/HPF)
[2020-12-30] MEDS: MEDROXYPROGESTERONE 150 MG/ML SYRINGE IM (17:27)
[2020-12-30 17:50] VITALS: BP 130/77; PULSE 72; RESP 16; O2SAT 99
== END 2020-12-30 17:50 | disposition home or self-care (01) ==
PROVIDERS: Emergency Provider Student in an Organized Health Care Education/Training Program; PCP Family Medicine
DX: N93.9 Abnormal uterine and vaginal bleeding, unspecified (principal)
CPT/HCPCS: 36415; 80053; 81003; 81015; 81025; 85025; 85610; 85730; 87086; 96372; 99283; 99284; J1050

== ENCOUNTER → 2022-03-25 15:46 | Outpatient (CLI) | payer SELFPAY | PROVIDERS: Referring Provider Internal Medicine; Visit Provider Internal Medicine | DX: Z23 Encounter for immunization (principal) | CPT/HCPCS: 90471; 90686 ==

== ENCOUNTER → 2022-11-09 12:56 | Outpatient (CLI) | payer OTHER, SELFPAY ==
[2022-11-09 16:22] LABS: Free T3, Triiodothyronine Free 4.93 pg/mL (2.77-5.27); Free T4, Direct Thyroxine 1.25 ng/dL (0.78-2.19)
[2022-11-09 16:35] LABS: Thyroid Stimulating Hormone 1.16 uIU/mL (0.47-4.68)
[2022-11-11 19:44] LABS: Anti Thyroglobulin Antibody <1.0 IU/mL (0.0-0.9); Thyroid Peroxidase Antibodies 11 IU/mL (0-34)
== END ==
PROVIDERS: PCP Family Medicine; Referring Provider Family Medicine; Visit Provider Family Medicine
DX: E28.2 Polycystic ovarian syndrome (principal); L65.9 Nonscarring hair loss, unspecified; E66.9 Obesity, unspecified; N92.0 Excessive and frequent menstruation with regular cycle
CPT/HCPCS: 84439; 84443; 84481; 84482; 86376; 86800

== ENCOUNTER → 2023-02-09 15:52 | Outpatient (CLI) | payer OTHER, SELFPAY | PROVIDERS: PCP Family Medicine; Referring Provider Family Medicine; Visit Provider Family Medicine | DX: Z23 Encounter for immunization (principal) | CPT/HCPCS: 90471; 90686 ==

== ENCOUNTER → 2023-03-21 14:30 | Outpatient (CLI) | payer OTHER, SELFPAY ==
--- NOTE | 2023-03-21 15:00 | DI.US.S_ITS ---
PROCEDURE: US PELVIC COMPLETE INDICATIONS: menorrhagia, PCOS TECHNIQUE: Real-time scanning was performed of the pelvic organs, with image documentation. Additional endovaginal scanning was necessary due to incomplete visualization of the adnexal and endometrial structures by transabdominal scanning. COMPARISON: [facility], US, PELVIC COMPLETE, 04/08/2016, 16:22. FINDINGS: Uterus: Uterus is anteverted and normal in size at 8.4 x 3.4 x 4.0 cm. The myometrium is homogeneous. The endometrium measures 7 mm combined thickness. Ovaries: The right ovary measures 3.2 x 1.3 x 3.1 cm, with a calculated ovarian volume of 6.5 cc. The left ovary measures 3.3 x 2.4 x 2.9 cm, with a calculated ovarian volume of 11.9 cc. The ovaries have a normal sonographic appearance. Normal appearing right ovarian follicle noted 1.5 cm No adnexal masses are seen. Other: No pathologic free abdominal or pelvic fluid. IMPRESSION: Unremarkable ultrasound the pelvis Approved by: Tray Mcdowell M.D. on 03/21/2023 at 19:20
== END ==
PROVIDERS: PCP Family Medicine; Referring Provider Family Medicine; Visit Provider Family Medicine
DX: N92.0 Excessive and frequent menstruation with regular cycle (principal)
CPT/HCPCS: 76830; 76856

== ENCOUNTER → 2023-07-20 15:16 | Outpatient (CLI) | payer OTHER, SELFPAY ==
--- NOTE | 2023-07-20 15:18 | DI.MRI.S_ITS ---
PROCEDURE: MR KNEE RT WO CON INDICATIONS: Locking, catching, popping right knee TECHNIQUE: Noncontrast sagittal PD fast spin echo and T2 fast spin echo with fat saturation, sagittal 3-D FLASH with fat saturation; coronal T1 spin echo and PD fast spin echo with fat saturation, and axial PD fast spin echo with fat saturation through the knee. COMPARISON: [facility], CR, XR KNEE 4+ VIEWS RIGHT, 07/08/2023, 16:32. FINDINGS: Image quality: Excellent. Menisci: In the medial meniscus, there is mild renal margin blunting of the meniscus body. The lateral meniscus is unremarkable. Cruciate ligaments: The anterior and posterior cruciate ligaments appear intact. Medial structures: The medial collateral ligament appears intact. The posterior oblique ligament, semimembranosus tendon insertions, oblique popliteal ligament, and meniscocapsular junction appear intact. Visualized portions of the pes anserinus tendons appear normal. No abnormal bursal fluid. Lateral structures: The lateral collateral ligament, long and short heads of the biceps femoris tendon appear intact. The popliteus tendon appears normal; the popliteofibular ligament appears intact. The posterosuperior and anteroinferior popliteomeniscal fascicles appear intact. The arcuate and fabellofibular ligaments appear intact, on either side of the lateral inferior geniculate artery. Iliotibial band appears normal. Anterior structures: The quadriceps and patellar tendons appear intact. Patellar alignment is normal. Mild superolateral Hoffa's fat pad edema, which can be seen the setting of patellar maltracking. Bones and cartilage: Cartilage in the patellofemoral compartment is well maintained. Cartilage of the medial and lateral compartments are well maintained. No marrow edema. No acute fracture. Joint space: There is physiologic knee joint fluid. Trace popliteal cyst. Normal appearing synovial plicae are incidentally noted. IMPRESSION: 1. Mild inner margin blunting of the medial meniscus body. 2. Findings suggestive of patellar maltracking. 3. Trace popliteal cyst Dictated by: Karla Graff M.D. on 07/20/2023 at 18:03 Approved by: Karla Graff M.D. on 07/20/2023 at 18:11
== END ==
LOC: MRI 15:16
PROVIDERS: PCP Family Medicine; Referring Provider Orthopaedic Surgery Foot and Ankle Surgery; Visit Provider Orthopaedic Surgery Foot and Ankle Surgery
DX: M23.91 Unspecified internal derangement of right knee (principal)
CPT/HCPCS: 73721

== ENCOUNTER 2024-02-01 06:23 | Emergency (ER) | payer OTHER, SELFPAY ==
[2024-02-01] VITALS (10 sets, daily range): BP systolic 138–177; BP diastolic 72–94; PULSE 61–82; RESP 19; TEMP 36.9; O2SAT 95–98; BMI 39.3
--- NOTE | 2024-02-01 06:25 | DI.RAD.S_ITS ---
PROCEDURE: XR CHEST 1V INDICATIONS: Chest pain TECHNIQUE: One view of the chest was acquired. COMPARISON: None. FINDINGS: Surgical changes and devices: None. Lungs and pleura: Lungs are clear. No pleural effusions or pneumothorax. Mediastinum: Mediastinal contours appear normal. Heart size is normal. Bones and chest wall: No suspicious bony lesions. Overlying soft tissues appear unremarkable. IMPRESSION: No acute cardiopulmonary pathology. Dictated by: Evaristo Cox M.D. on 02/01/2024 at 9:36 Approved by: Evaristo Cox M.D. on 02/01/2024 at 9:36
--- NOTE | 2024-02-01 06:38 | EKG_ITS ---
[facility] [address] [place] [id number] Test Date: 2024-02-01 Pat Name: Priya Ruby Department: [facility] Room: Gender: Female Materials Scientist: : 1995 Requested By: Order Number: [id number] Reading MD: Kishor Overton Measurements Intervals [place] Rate: 74 P: 60 MT: 134 QRS: 57 QRSD: 86 T: 33 QT: 384 QTc: 426 Interpretive Statements Normal sinus rhythm Electronically Signed On 02-01-2024 11:26:25 PDT by Kishor Overton
[2024-02-01] MEDS: MAG HYDROX/ALUMINUM/SIMETH SUS 20 ML, LIDOCAINE VISCOUS 2% 15 ML PO (07:16)
--- NOTE | 2024-02-01 08:15 | PC.NURSE ---
Patient states that the meds made her numb for about 10min but symptoms still present. feels like things are still stuck in my throat able to tolerate secretions.
--- NOTE | 2024-02-01 08:30 | ED.CHESTPAIN ---
HPI - Chest Pain General Chief Complaint: Chest Pain Stated Complaint: chest pain Time Seen by Provider: 02/01/24 06:59 Source: patient, RN notes reviewed and old records reviewed Mode of arrival: Ambulatory Limitations: no limitations Limitations: no limitations History of Present Illness HPI narrative: 28-year-old female presents with complaint of feeling sort of tight in her throat. Patient works night shifts so states last night she woke up to come to work around 8:00 pm in the evening and woke up with symptoms. She worked through the night with her symptoms. She feels sort of tight in her throat she states bending over seems to make it worse. She does note some slight hoarseness. Denies any fevers or chills. States it does radiate a little bit down in her chest. She states it feels like when you get food stuck. But states she was not having any issues after she would last day and symptoms since started until several hours after that. She states no rash or skin changes. She states voice is slightly hoarse, denies any wheezing or tightness. No swelling of lips or airway otherwise. No sore throat. No cold cough or congestion symptoms currently. Denies any nausea or vomiting. Denies any diarrhea or constipation. No swelling of her extremities. Patient states has not had similar symptoms in the past. No issues with handling secretions. States home medications include progesterone, sertraline she was started a month ago and propranolol. Has allergies to amoxicillin and spironolactone. Does have some food allergies but describes him as digestive issues. States prior surgery with . Vapes tobacco, occasional alcohol, no recreational drugs. Related Data Home Medications Medication Instructions Recorded Confirmed naproxen sodium 220 mg capsule 220 mg PO BID PRN 06/19/20 01/06/24 (Aleve) omega-3 fatty acids 500 mg capsule 500 mg PO DAILY 07/15/22 01/06/24 turmeric 400 mg capsule mg PO 07/15/22 01/06/24 Lactobacillus 25 billion cap PO 11/09/22 01/06/24 cell-Bifido 25 billion [id number] capsule ascorbic acid (vitamin C) 1,000 mg 1 g PO DAILY 11/09/22 01/06/24 capsule magnesium complex with D3 and Zinc PO 11/09/22 01/06/24 [id number] 18 mg-mfolate tab PO 11/09/22 01/06/24 800 mcg DFE-vit K 150 mcg-herb tablet (Alive Women's Ultra Potency) Previous Rx's Medication Instructions Recorded nystatin 100,000 unit/gram topical 1 applic topical BID #60 grams 07/15/22 powder doxycycline monohydrate 100 mg 100 mg PO BID #20 caps 07/12/23 capsule Progesterone E4M 125 mg PO .QHS #30 tabs 12/16/23 Progesterone E4M tablet See Rx Instructions .Route 12/16/23 .COMPLEX #30 tabs propranolol 10 mg tablet 10 mg PO BID PRN anxiety attack 01/06/24 #60 tabs sertraline 25 mg tablet See Rx Instructions PO DAILY #60 01/06/24 tabs Allergies Allergy/AdvReac Type Severity Reaction Status Date / Time spironolactone Allergy Intermediate itching Verified 01/06/24 09:50 amoxicillin Allergy Mild Verified 01/06/24 09:50 adhesive AdvReac Mild rash Verified 01/06/24 09:50 Review of Systems Review of Systems ROS Unobtainable: All systems reviewed & are unremarkable except as noted in HPI and below Patient History Medical History Generalized anxiety disorder with panic attacks Stressful life events affecting family and household Hair loss Candidal intertrigo Physical exam, annual Sacral region somatic dysfunction Pelvic somatic dysfunction Acute right-sided low back pain with right-sided sciatica Vitamin D deficiency Midline low back pain with bilateral sciatica PCOS (polycystic ovarian syndrome) Vision disorder Hearing deficit Headache (~2013) Shoulder pain (~2014) Chronic back pain (~2014) Acne (~2003) Chicken pox (~1998) Chronic ear infection (~1993) Painful menstruation (~2012) Irregular menstrual cycle (~2012) Human papilloma virus (~2011) Heavy menstrual period (~2012) Migraines (~2013) Anxiety and depression (~2014) Chlamydia (~2011) Abnormal Pap smear of cervix (~2011) Spasm of back muscles Surgical History History of epidural anesthesia Hx of tympanostomy tubes (~1994) Status post delivery (03/12/08) Family History Grandfather Stroke Diabetes mellitus Mother Age: 61 Heart disease Hypertension Diabetes mellitus Father No problems noted. Grandmother No problems noted. Grandmother No problems noted. Social History number of children: 1 household members: children pets and animals: Yes education level: high school occupational status: employed [employer]: Unknown leisure activities: other other: Outdoors, zoos, lakes seatbelt use: always helmet use: Yes water heater temp set < 120 deg: Yes working smoke detector in home: Yes fire extinguisher in home: Yes carbon monox detector in home: Yes firearms in home: No Smoking Status: Current every day smoker quit status: considering quitting alcohol intake: current substance use type: does not use during the past year weight has: other well-balanced diet: daily or most days daily servings fruits/ve-4 caffeine: Yes (1-2 caffeine drinks per day) eating out: 1-3 times/week frequency: 3-4 times per week duration: other Smoking Status: Current every day smoker alcohol intake frequency: a few times a month Substance Use Type: does not use Exam Narrative Exam Narrative: GEN: well nourished, well appearing female, alert and oriented x 3, patient appears to be in mild distress. HEENT: Atraumatic, pupils are equal round reactive to light, extraocular movements are intact, nares are clear, there is no conjunctival pallor. Throat is clear without any exudates, erythema, tonsillar enlargement or uvular deviation, patient is very slightly hoarse. no difficulty swallowing secretions lying back at 30? without any issues. No swelling of the neck or oral airway noted. No stridor. No difficulty with secretions HEART: Regular rate and rhythm without murmur, clicks, rubs. LUNGS:Lungs clear to auscultation, no wheezes, rales, crackles, chest moves symmetrically ABD:bowel sounds normal, soft, non-tender, no guarding, rebound, rigidity, no masses noted, no hepatosplenomegaly :No CVA tenderness MSCL: Non-tender, no muscle atrophy, muscles strength 5/5 upper and lower extremities, full range of motion. NEURO:CN 2-12 intact, sensation normal. SKIN: No rash, erythema or hives. Initial Vital Signs Initial Vital Signs: Vital Signs Temperature 98.5 F 02/01/24 06:30 Pulse Rate 79 02/01/24 06:30 Respiratory Rate 19 02/01/24 06:30 Blood Pressure 177/94 H 02/01/24 06:30 Pulse Oximetry 97 02/01/24 06:30 Oxygen Delivery Method Room Air 02/01/24 06:30 Course Orders Ordered: ED Orders 02/01/24 08:52 CBC Auto Diff [Complete Blood Count AUTO DIFF] Stat CMP [Comprehensive Metabolic Panel] Stat D Dimer Stat Troponin & CK Cardiac Panel Stat Discontinued Medications Al Hydrox/Mg Hydrox/Simethicone 20 ml/ Lidocaine HCl 15 ml 0 ml PO NOW ONE Stop: 02/01/24 07:00 Last Admin: 02/01/24 07:16 Dose: 15 ml Documented By: DEEJAY Diphenhydramine HCl (Diphenhydramine 50 Mg/Ml Vial) 25 mg IV NOW ONE Stop: 02/01/24 08:40 Last Admin: 02/01/24 08:50 Dose: 25 mg Documented By: HOUSTON Dexamethasone 20 mg/ Sodium (Chloride) 55 mls @ 220 mls/hr IV NOW ONE Stop: 02/01/24 08:40 Last Infusion: 02/01/24 09:23 Dose: Infused Documented By: Admin: 02/01/24 09:04 Dose: 220 mls/hr Documented By: HOUSTON Vital Signs Vital signs: Vital Signs - 8 hr 02/01/24 09:30 02/01/24 09:30 Pulse Rate 64 Blood Pressure 138/73 Pulse Oximetry 96 MDM - Chest Pain Lab Data 02/01/24 08:52 02/01/24 08:52 Labs: Lab Results 02/01/24 Range/Units 08:52 WBC 10.9 (4.5-11.0) X10^3/uL RBC 4.60 (4.0-5.2) X10^6/uL Hgb 14.1 (12.0-16.0) g/dL Hct 40.0 (36-46) % MCV 86.9 (80-100) fL MCH 30.6 (26-34) PG MCHC 35.2 (30-36) % RDW 12.5 (11.6-14.8) % Plt Count 376 (150-400) X10^3/uL Neut % (Auto) 57.1 (50-75) % Lymph % (Auto) 31.2 (25-40) % [place] % (Auto) 8.7 (3-14) % Eos % (Auto) 2.0 (2-4) % Baso % (Auto) 1.0 (0-2) % Neut # (Auto) 6200 (2959-7340) /uL Lymph # (Auto) 3400 (9037-3893) /uL [place] # (Auto) 900 (0-900) /uL Eos # (Auto) 200 (0-450) /uL Baso # (Auto) 100 (0-100) /uL D-Dimer 304 (<500) ng/ml Sodium 138 (137-145) mmol/L Potassium 3.4 (3.4-5.1) mmol/L Chloride 105 (98-107) mmol/L Carbon Dioxide 24 (22-32) mmol/L BUN 18 H (7-17) mg/dL Creatinine 0.79 (0.52-1.04) mg/dL Estimated GFR > 60 (>60) mL/min BUN/Creatinine Ratio 22.8 H (6-22) Glucose 108 H (70-100) mg/dL Calcium 9.3 (8.4-10.2) mg/dL Total Bilirubin 0.4 (0.2-1.3) mg/dL AST 22 (14-36) IU/L ALT 28 (<35) IU/L Alkaline Phosphatase 58 (38-126) U/L Total Creatine Kinase 83 (30-135) U/L Troponin I < 0.012 (0.01-0.034) ng/mL Total Protein 7.5 (6.3-8.2) g/dL Albumin 4.5 (3.5-5.0) g/dL Globulin 3.0 (1.7-4.1) g/dL Albumin/Globulin Ratio 1.5 (1.0-2.8) Imaging Data Chest x-ray: Radiologist's Impression: Hot cream negative for acute change no consolidation or effusion normal heart size no acute fracture. ECG Data Attestation: I personally reviewed and interpreted this ECG as follows: Interpretation: Sinus rhythm rate of 74, MA 134 QRS 86 QTC of 426. No acute changes. MDM Narrative Medical decision making narrative: 28-year-old female comes in with complaint of sensation of something stuck in her lower throat just above the clavicles, states she ate did not have any symptoms for several hours but feels sort of tight states it has not rapidly worsening but not improving. States bending over seems to make it feel worse as well as trying to lay flat. She notes she was slightly hoarse but no other changes such as rash or skin changes suggesting allergic response. Cardiac source seems less likely patient does not have a lot of risk factors. Chest x-ray shows no acute change EKG shows sinus rhythm White count of 10.9 hemoglobin of 14 platelets of 376. Electrolytes are normal BUN 18 creatinine 0.79 glucose is 108 LFTs are negative troponins less than 0.012. D-dimer is 304. The night crew had given patient GI cocktail for symptoms. Patient states made it feel numb but did not really resolve symptoms. Patient given dose of dexamethasone and Benadryl. Patient did not have any much improvement. She has not had any worsening. She appears to be stable with no worsening of her symptoms, does not appear to be having anaphylaxis or allergic reaction, patient has had greater than 12 hours of symptoms with negative troponin negative D-dimer for atypical symptoms, vital signs are overall fairly appropriate she was little hypertensive. She has been a little bit hoarse so may have little bit of component of upper respiratory infection but has not had any other symptoms. Patient is felt appropriate for discharge home with return precautions. Discharge Plan Departure Patient Disposition: Home Clinical Impression: Globus sensation Activity Restrictions/Additional Instructions: Please follow up for recheck if your symptoms are not improving. Your workup today is overall reassuring, your labs and imaging and EKG do not show any acute change. Please return if you have rapidly worsening symptoms, any stridor or high-pitched wheezing, difficulty with swallowing, difficulty handling your secretions or saliva, wheezing, new chest pain or shortness of breath, new rash or skin changes, vomiting, fevers or other new or concerning changes. Prescriptions: No Action doxycycline monohydrate 100 mg capsule 100 mg PO BID Qty: 20 3RF Rx Instructions: Take one capsule twice daily for 10 days. Avoid calcium while on this medication. Progesterone E4M tablet 25 mg See Rx Instructions .ROUTE .COMPLEX Qty: 30 5RF Rx Instructions: Take daily on days 1 through 14 of cycle Progesterone E4M tablet 125 mg PO .QHS Qty: 30 5RF Rx Instructions: Take nightly during days 15-28 of cycle sertraline 25 mg tablet See Rx Instructions PO DAILY Qty: 60 1RF Rx Instructions: start with 1 tab daily for two weeks, then start 2 tabs daily if needed for anxiety propranolol 10 mg tablet 10 mg PO BID PRN (Reason: anxiety attack) Qty: 60 5RF naproxen sodium [Aleve] 220 mg capsule 220 mg PO BID PRN ascorbic acid (vitamin C) 1,000 mg capsule 1 g PO DAILY magnesium complex with D3 and Zinc PO Rx Instructions: Magnesium 230mg-D3 30mcg-Zinc 10.5mg Lacto no.87-Fnhshe-TFO-larch 25B cell-25B cell-50 mg capsule PO Alive Women's Ultra Potency 18 mg-800 mcg DFE-150 mcg tablet PO turmeric 400 mg capsule PO omega-3 fatty acids 500 mg capsule 500 mg PO DAILY nystatin 100,000 unit/gram powder 1 applic topical BID Qty: 60 2RF Referrals: Juvenal Pineda DO [Primary Care Provider] - Stand Alone Forms: Patient Portal/API/Survey, Work Release Note
[2024-02-01] MEDS: diphenhydrAMINE 50 MG/ML VIAL 25 MG IV (08:50)
[2024-02-01 08:59] LABS: Add Manual Diff / Slide Review NO; Basophils Absolute Auto 100 /uL (0-100); Eosinophils Absolute Auto 200 /uL (0-450); Hemoglobin 14.1 g/dL (12.0-16.0); Lymphocytes Absolute Auto 3400 /uL (1100-4500); Lymphocytes Percent Auto 31.2 % (25-40); Mean Corpuscular HGB Conc 35.2 % (30-36); Mean Corpuscular Hemoglobin 30.6 PG (26-34); Mean Corpuscular Volume 86.9 fL (80-100); Monocytes Absolute Auto 900 /uL (0-900); Monocytes Percent Auto 8.7 % (3-14); Neutrophils Absolute Auto 6200 /uL (1500-7000); Neutrophils Percent Auto 57.1 % (50-75); Platelet Count 376 X10^3/uL (150-400); Red Cell Distribution Width 12.5 % (11.6-14.8); White Blood Cell Count 10.9 X10^3/uL (4.5-11.0)
[2024-02-01] MEDS: dexAMETHasone 20 MG in SODIUM CHLORIDE 0.9% 50 ML 220 MG IV (09:04)
[2024-02-01 09:08] LABS: D Dimer 304 ng/ml (<500)
[2024-02-01 09:10] LABS: Alanine Aminotransferase 28 IU/L (<35); Albumin 4.5 g/dL (3.5-5.0); Albumin Globulin Ratio 1.5 (1.0-2.8); Alkaline Phosphatase 58 U/L (38-126); Aspartate Aminotransferase 22 IU/L (14-36); BUN Creatinine Ratio 22.8 (6-22); Bilirubin Total 0.4 mg/dL (0.2-1.3); Blood Urea Nitrogen 18 mg/dL (7-17); Calcium 9.3 mg/dL (8.4-10.2); Carbon Dioxide 24 mmol/L (22-32); Chloride 105 mmol/L (98-107); Creatine Kinase 83 U/L (30-135); Estimated Glomerular Filt Rate > 60 mL/min (>60); Glucose 108 mg/dL (70-100); HEMOLYSIS < 15 (0-50); Potassium 3.4 mmol/L (3.4-5.1); Sodium 138 mmol/L (137-145); Total Protein 7.5 g/dL (6.3-8.2)
[2024-02-01 09:22] LABS: Troponin I < 0.012 ng/mL (0.01-0.034)
--- NOTE | 2024-02-01 10:01 | PC.NURSE ---
Placed phone call to Cardiology Office of Dr. Pino ([phone]) left message with front end web developer to have him call Dr. Renteria to speak about mutual patient. Phone call originally placed at [phone], recalled at [phone].
== END 2024-02-01 09:58 | disposition home or self-care (01) ==
PROVIDERS: Emergency Provider Emergency Medicine; PCP Family Medicine
DX: R09.A2 Foreign body sensation, throat (principal); R07.9 Chest pain, unspecified
CPT/HCPCS: 36415; 71045; 80053; 82550; 84484; 85025; 85379; 93005; 96365; 96375; 99284; J1100; J1200

== ENCOUNTER → 2024-02-15 | Outpatient (CLI) | payer OTHER, SELFPAY | PROVIDERS: PCP Family Medicine; Referring Provider Internal Medicine; Visit Provider Internal Medicine | DX: Z23 Encounter for immunization (principal) | CPT/HCPCS: 90471; 90656 ==

== ENCOUNTER 2024-05-30 04:04 | Emergency (ER) | payer OTHER, SELFPAY ==
[2024-05-30 04:09] VITALS: BP 191/103; PULSE 98; RESP 17; TEMP 36.6; O2SAT 97; BMI 38.4
--- NOTE | 2024-05-30 04:11 | ED_ITS ---
HPI - Female Genitourinary General Chief complaint: Urogenital-Female Stated complaint: Severe UTI Time Seen by Provider: 05/30/24 04:09 History of Present Illness HPI Narrative: 29-year-old female past medical history of migraines, low back pain, anxiety, depression, comes into the ED from home for evaluation of hematuria and dysuria ongoing persistent for the past 48 hours, states that is now gotten ?unbearable whenever she uses the restroom therefore decided come into the ED for further evaluation treatment. She denies any other symptoms such as headache visual disturbances chest pain shortness breath fever chills nausea vomiting abdominal pain or any other GI/ symptoms time. Related Data Home Medications Medication Instructions Recorded Confirmed naproxen sodium 220 mg capsule 220 mg PO BID PRN 06/19/20 03/07/24 (Aleve) omega-3 fatty acids 500 mg capsule 500 mg PO DAILY 07/15/22 03/07/24 turmeric 400 mg capsule mg PO 07/15/22 03/07/24 Lactobacillus 25 billion cap PO 11/09/22 03/07/24 cell-Bifido 25 billion [id number] capsule ascorbic acid (vitamin C) 1,000 mg 1 g PO DAILY 11/09/22 03/07/24 capsule magnesium complex with D3 and Zinc PO 11/09/22 03/07/24 doxycycline monohydrate 100 mg 100 mg PO .PRN 02/07/24 03/07/24 capsule nystatin 100,000 unit/gram topical 1 applic topical .PRN 02/07/24 03/07/24 powder Previous Rx's Medication Instructions Recorded Progesterone E4M 125 mg PO .QHS #30 tabs 12/16/23 Progesterone E4M tablet See Rx Instructions .Route 12/16/23 .COMPLEX #30 tabs propranolol 10 mg tablet 10 mg PO BID PRN anxiety attack 01/06/24 #60 tabs sertraline 25 mg tablet See Rx Instructions PO DAILY #60 01/06/24 tabs trazodone 50 mg tablet 50 mg PO BEDTIME PRN insomnia #90 02/07/24 tabs sulfamethoxazole 800 1 tab PO DAILY 7 days #14 tabs 05/30/24 mg-trimethoprim 160 mg tablet (Bactrim DS) sulfamethoxazole 800 1 tab PO DAILY 7 days #7 tabs 05/30/24 mg-trimethoprim 160 mg tablet (Bactrim DS) Allergies Allergy/AdvReac Type Severity Reaction Status Date / Time spironolactone Allergy Intermediate itching Verified 03/07/24 14:30 amoxicillin Allergy Mild Verified 03/07/24 14:30 adhesive AdvReac Mild rash Verified 03/07/24 14:30 Review of Systems Review of Systems Narrative: General: Denies fever, chills, weight loss HEENT: Denies headache, eye drainage, eye irritation, head trauma, sore throat, voice change Cardiovascular: Denies any chest pain, palpitations, shortness of breath, tachycardia Respiratory: Denies any shortness of breath, cough, wheeze, stridor GI/: Positive dysuria hematuria Denies any abdominal pain, nausea, vomiting, diarrhea, bright red blood per rectum, melanotic stools, MSK: Denies any joint pain, muscle pains, swelling Skin: Denies any rashes, lesions, discoloration Neuro: Denies any headache, lightheadedness, dizziness, fainting, weakness Psych: Denies SI/HI Patient History Medical History Generalized anxiety disorder with panic attacks Stressful life events affecting family and household Hair loss Candidal intertrigo Physical exam, annual Sacral region somatic dysfunction Pelvic somatic dysfunction Acute right-sided low back pain with right-sided sciatica Vitamin D deficiency Midline low back pain with bilateral sciatica PCOS (polycystic ovarian syndrome) Vision disorder Hearing deficit Headache (~2013) Shoulder pain (~2014) Chronic back pain (~2014) Acne (~2003) Chicken pox (~1998) Chronic ear infection (~1993) Painful menstruation (~2012) Irregular menstrual cycle (~2012) Human papilloma virus (~2011) Heavy menstrual period (~2012) Migraines (~2013) Anxiety and depression (~2014) Chlamydia (~2011) Abnormal Pap smear of cervix (~2011) Spasm of back muscles Surgical History History of epidural anesthesia Hx of tympanostomy tubes (~1994) Status post delivery (03/12/08) Family History Grandfather Stroke Diabetes mellitus Mother Age: 61 Heart disease Hypertension Diabetes mellitus Father No problems noted. Grandmother No problems noted. Grandmother No problems noted. Exam Narrative Exam Narrative: General: Cooperative, comfortable, well-developed, not in acute distress HEENT: Normocephalic, atraumatic, PERRLA, normal sclera, eyelids normal, Neck: Active full range of motion, atraumatic Chest: Normal to inspection, negative crepitus, no overlying erythema ecchymosis Respiratory: Normal respiratory effort, not in acute respiratory distress, clear to auscultation bilaterally negative cough, wheeze, tachypnea, rhonchi, rales Cardiology: Regular rate rhythm negative gallop, murmur, rubs GI/: Normal to inspection, soft, nonrigid, no tenderness to palpation, exam deferred MSK: Full range of active range of motion of all 4 extremities, atraumatic Skin: No rashes lesions noted Neuro: Alert awake oriented x3, moves all 4 extremities spontaneously, cranial nerves intact, able to answer all questions appropriately follows commands appropriately Psych: Cooperative, negative suicidal or homicidal ideations MDM - Female Genitourinary Differential Diagnosis Differential diagnosis: Likely urinary tract infection MDM Narrative Medical decision making narrative: 29-year-old female no pertinent past medical history comes into the ED from home for urinary tract infection symptoms. States that she has been having hematuria dysuria ongoing persistent for the past 48 hours states that it has become unbearable decided come into the ED for further evaluation treatment. She denies any other symptoms. Patient had urinalysis performed here consistent with acute urinary tract infection. Patient will be sent home with oral antibiotics, 1st dose here. Strict return precautions given verbalized understanding of this and agrees to being discharged home with outpatient follow up Discharge Plan Departure Patient Disposition: Home Clinical Impression: Urinary tract infection Instructions: DI for Urinary Tract Infection (UTI) Activity Restrictions/Additional Instructions: Please follow up with your primary care doctor Please read the discharge instructions sheet carefully and bring all papers to all doctor follow-up visits, as it may contain information that your doctor may want to see. Disease processes change and evolve, if your symptoms worsen or if you develop any new symptoms that are concerning to you please return for evaluation. Your evaluation today does not show any evidence of any life-threa tening/serious illnesses requiring admission to the hospital or surgery. Please follow-up with your doctor for re-evaluation in approximately 1 day. Seek immediate medical attention for any worrisome symptoms. *If you do not have a primary care provider please contact the [facility] Resource line at [phone]. They will ask some questions about your medical history and help get you set up with a doctor in the community. Prescriptions: New sulfamethoxazole-trimethoprim [Bactrim DS] 800-160 mg tablet 1 tab PO DAILY 7 Days Qty: 14 0RF sulfamethoxazole-trimethoprim [Bactrim DS] 800-160 mg tablet 1 tab PO DAILY 7 Days Qty: 7 0RF No Action Progesterone E4M tablet 25 mg See Rx Instructions .ROUTE .COMPLEX Qty: 30 5RF Rx Instructions: Take daily on days 1 through 14 of cycle Progesterone E4M tablet 125 mg PO .QHS Qty: 30 5RF Rx Instructions: Take nightly during days 15-28 of cycle sertraline 25 mg tablet See Rx Instructions PO DAILY Qty: 60 1RF Rx Instructions: start with 1 tab daily for two weeks, then start 2 tabs daily if needed for anxiety propranolol 10 mg tablet 10 mg PO BID PRN (Reason: anxiety attack) Qty: 60 5RF doxycycline monohydrate 100 mg capsule 100 mg PO .PRN Rx Instructions: Take one capsule twice daily for 10 days. Avoid calcium while on this medication. nystatin 100,000 unit/gram powder 1 applic topical .PRN trazodone 50 mg tablet 50 mg PO BEDTIME PRN (Reason: insomnia) Qty: 90 1RF naproxen sodium [Aleve] 220 mg capsule 220 mg PO BID PRN ascorbic acid (vitamin C) 1,000 mg capsule 1 g PO DAILY magnesium complex with D3 and Zinc PO Rx Instructions: Magnesium 230mg-D3 30mcg-Zinc 10.5mg Lacto no.09-Aiummn-SAE-larch 25B cell-25B cell-50 mg capsule PO turmeric 400 mg capsule PO omega-3 fatty acids 500 mg capsule 500 mg PO DAILY Referrals: Juvenal Pineda DO [Primary Care Provider] - Stand Alone Forms: Patient Portal/API/Survey
[2024-05-30 04:29] LABS: Appearance Urine UA CLOUDY; Bilirubin Urine UA NEGATIVE (NEGATIVE); Color Urine UA YELLOW; Glucose Urine UA TRACE g/dL (Negative); Ketones Urine UA TRACE (NEGATIVE); Leukocyte Esterase Urine UA 1+ (NEGATIVE); Nitrite Urine UA POSITIVE (Negative); Occult Blood Urine UA 3+ (Negative); Protein Urine UA 2+ (Negative)
[2024-05-30 04:35] LABS: RBC Urine 10-30/HPF (0-5/HPF); Urine Volume 10mL (spun); pH Urine UA 6.5 (4.5-8.0)
[2024-05-30 04:36] LABS: Bacteria Urine Many (>30); Culture Indicated Urine Specimen Cultured; Squamous Epithelial Cell Urine 1-5 /HPF (0-5/HPF); WBC Urine 30-100/HPF (0-5/HPF)
[2024-05-30 04:37] LABS: Pregnancy Test Urine Negative (Negative)
[2024-05-30 04:43] VITALS: BP 135/88
[2024-05-30] MEDS: PHENAZOPYRIDINE 100 MG TABLET PO (04:50)
[2024-05-30] MEDS: TRIMETH/SULFA 160/800 (DS) TABLET 1 TAB PO (04:50)
== END 2024-05-30 04:54 | disposition home or self-care (01) ==
PROVIDERS: Emergency Provider Student in an Organized Health Care Education/Training Program; PCP Family Medicine
DX: N39.0 Urinary tract infection, site not specified (principal)
CPT/HCPCS: 81001; 81025; 87077; 87086; 87186; 99283

== ENCOUNTER 2024-10-07 01:59 | Emergency (ER) | payer OTHER, SELFPAY ==
[2024-10-07 02:06] VITALS: BP 180/79; PULSE 73; RESP 16; TEMP 37.1; O2SAT 97; BMI 38.4
--- NOTE | 2024-10-07 02:10 | DI.RAD.S_ITS ---
PROCEDURE: XR ANKLE RT MIN 3V INDICATIONS: twisted rt ankle with bruising and swelling TECHNIQUE: 3 views of the ankle were acquired. COMPARISON: None. FINDINGS: Bones: No fractures or dislocations. Ankle mortise is normally aligned. No suspicious bony lesions. Soft tissues: No tibiotalar joint effusion. Achilles tendon appears normal. IMPRESSION: No acute ankle fracture or dislocation. Ankle mortise is congruent. No discrepancies. Dictated by: Evaristo Cox M.D. on 10/07/2024 at 8:12 Approved by: Evaristo Cox M.D. on 10/07/2024 at 8:15
--- NOTE | 2024-10-07 04:01 | ED.LOWEXIN ---
HPI - Extremity Injury (Lower) General Chief Complaint: Extremity Injury, Lower Stated Complaint: Rt Ankle injury, pain, bruising x1day Time Seen by Provider: 10/07/24 03:55 Source: patient Mode of arrival: Ambulatory History of Present Illness HPI Narrative: 29-year-old female had right ankle twist injury night before last on and October, some bruising to the lateral aspect of the ankle. No other injuries recalled. He has not had any prior injuries or surgeries or procedures on that ankle. No pain in her proximal foreleg. No pain in the distal foot or toes. Left lower extremity and bilateral upper extremities unaffected. No fall. Related Data Home Medications ?Medication ?Instructions ?Recorded ?Confirmed naproxen sodium 220 mg capsule 220 mg PO BID PRN 06/19/20 03/07/24 (Aleve) omega-3 fatty acids 500 mg capsule 500 mg PO DAILY 07/15/22 03/07/24 turmeric 400 mg capsule mg PO 07/15/22 03/07/24 Lactobacillus 25 billion cap PO 11/09/22 03/07/24 cell-Bifido 25 billion [id number] capsule ascorbic acid (vitamin C) 1,000 mg 1 g PO DAILY 11/09/22 03/07/24 capsule magnesium complex with D3 and Zinc PO 11/09/22 03/07/24 nystatin 100,000 unit/gram topical 1 applic topical .PRN 02/07/24 03/07/24 powder Previous Rx's ?Medication ?Instructions ?Recorded propranolol 10 mg tablet 10 mg PO BID PRN anxiety attack 01/06/24 #60 tabs sertraline 25 mg tablet See Rx Instructions PO DAILY #60 01/06/24 tabs Progesterone E4M tablet See Rx Instructions .Route 06/05/24 .COMPLEX #45 tabs ciprofloxacin HCl 500 mg tablet 500 mg PO BID #10 tabs 06/05/24 doxycycline hyclate 100 mg tablet 100 mg PO BID #14 tabs 06/11/24 progesterone HRT cream 40mg/ml #90 grams 06/13/24 trazodone 50 mg tablet 50 mg PO BEDTIME PRN insomnia #90 08/03/24 tabs Allergies Allergy/AdvReac Type Severity Reaction Status Date / Time spironolactone Allergy Intermediate itching Verified 10/07/24 02:06 amoxicillin Allergy Mild Verified 10/07/24 02:06 adhesive AdvReac Mild rash Verified 10/07/24 02:06 Patient History Medical History Generalized anxiety disorder with panic attacks Stressful life events affecting family and household Hair loss Candidal intertrigo Physical exam, annual Sacral region somatic dysfunction Pelvic somatic dysfunction Acute right-sided low back pain with right-sided sciatica Vitamin D deficiency Midline low back pain with bilateral sciatica PCOS (polycystic ovarian syndrome) Vision disorder Hearing deficit Headache (~2013) Shoulder pain (~2014) Chronic back pain (~2014) Acne (~2003) Chicken pox (~1998) Chronic ear infection (~1993) Painful menstruation (~2012) Irregular menstrual cycle (~2012) Human papilloma virus (~2011) Heavy menstrual period (~2012) Migraines (~2013) Anxiety and depression (~2014) Chlamydia (~2011) Abnormal Pap smear of cervix (~2011) Spasm of back muscles Surgical History History of epidural anesthesia Hx of tympanostomy tubes (~1994) Status post delivery (03/12/08) Family History Grandfather Stroke Diabetes mellitus Mother Age: 61 Heart disease Hypertension Diabetes mellitus Father No problems noted. Grandmother No problems noted. Grandmother No problems noted. Social History number of children: 1 household members: children pets and animals: Yes education level: high school occupational status: employed [employer]: Unknown leisure activities: other other: Outdoors, zoos, lakes seatbelt use: always helmet use: Yes water heater temp set < 120 deg: Yes working smoke detector in home: Yes fire extinguisher in home: Yes carbon monox detector in home: Yes firearms in home: No Smoking Status: Current every day smoker quit status: considering quitting alcohol intake: current substance use type: does not use during the past year weight has: other well-balanced diet: daily or most days daily servings fruits/ve-4 caffeine: Yes (1-2 caffeine drinks per day) eating out: 1-3 times/week frequency: 3-4 times per week duration: other Smoking Status: Current every day smoker alcohol intake frequency: a few times a month Exam Narrative Exam Narrative: GENERAL: Well-developed patient, in mild distress. HEAD: Atraumatic. Normocephalic. EYES: Pupils equal round and reactive. Extraocular motions intact. No scleral icterus. No injection or drainage. ENT: No obvious facial trauma. NECK: Trachea midline. Non tender CARDIOVASCULAR: Regular rate and rhythm without murmurs, gallops, or rubs. RESPIRATORY: Clear to auscultation. Breath sounds equal bilaterally. No wheezes, rales, or rhonchi. GASTROINTESTINAL: Abdomen soft, non-tender, nondistended. EXTREMITIES: Tenderness with some ecchymoses lateral joint line and dependent right ankle, no medial joint line tenderness. No gross deformity. No tenderness to the left mid distal foot or toes. No tenderness mid upper proximal foreleg or knee. BACK: Nontender without deformity or crepitance. No flank tenderness. NEURO: AOx3. Motor functions grossly nonfocal. SKIN: No rash or erythema of visible areas Initial Vital Signs Initial Vital Signs: Vital Signs Temperature 98.7 F 10/07/24 02:06 Pulse Rate 73 10/07/24 02:06 Respiratory Rate 16 10/07/24 02:06 Blood Pressure 180/79 H 10/07/24 02:06 Pulse Oximetry 97 10/07/24 02:06 Oxygen Delivery Method Room Air 10/07/24 02:06 Course Orders Ordered: ED Orders 10/07/24 02:10 XR ankle RT min 3V Stat Vital Signs Vital signs: Vital Signs - 8 hr 10/07/24 02:06 10/07/24 04:52 10/07/24 04:52 Temperature 98.7 F Pulse Rate 73 62 Respiratory Rate 16 Blood Pressure 180/79 H 139/85 Pulse Oximetry 97 98 Oxygen Delivery Method Room Air MDM - Extremity Injury (Lower) MDM Narrative Medical decision making narrative: Ankle twist injury, with some tenderness, x-ray sent from triage Right ankle x-ray series. Impressions: ?No fracture evident. ? See radiology report. Nonweightbearing with splint and crutches. Discussed rest elevation. [id number] NSAIDs/Tylenol as needed for pain control. Recheck advised with PCP this next week. Return precautions discussed. Discharge Plan Departure Patient Disposition: Home Clinical Impression: Right ankle strain Instructions: DI for Ankle Sprain Activity Restrictions/Additional Instructions: Twist injury to right ankle 2 days ago, with persisting pain, also some bruising/ecchymoses changes dependently on the right lateral heel. X-rays negative for any fracture per Radiology report. Trial of nonweightbearing with crutches, and air stirrup splint support. Use [id number] Tylenol and or Motrin as needed for pain control. Rest ice elevation. Recheck with your regular doctor in the next couple of days. Return to this/nearest emergency department for any change worsening symptoms or any concerns prior. Prescriptions: No Action ciprofloxacin HCl 500 mg tablet 500 mg PO BID Qty: 10 0RF Progesterone E4M tablet 25 mg See Rx Instructions .ROUTE .COMPLEX Qty: 45 5RF Rx Instructions: Take daily on days 1 through 14 of cycle (DME) progesterone HRT cream 40mg/ml See Rx Instructions .Route .MEDSUPPLY Qty: 90 12RF Rx Instructions: 4 clicks to innerarms or thighs daily on cycle days 15-28 trazodone 50 mg tablet 50 mg PO BEDTIME PRN (Reason: insomnia) Qty: 90 1RF sertraline 25 mg tablet See Rx Instructions PO DAILY Qty: 60 1RF Rx Instructions: start with 1 tab daily for two weeks, then start 2 tabs daily if needed for anxiety propranolol 10 mg tablet 10 mg PO BID PRN (Reason: anxiety attack) Qty: 60 5RF nystatin 100,000 unit/gram powder 1 applic topical .PRN doxycycline hyclate 100 mg tablet 100 mg PO BID Qty: 14 0RF naproxen sodium [Aleve] 220 mg capsule 220 mg PO BID PRN ascorbic acid (vitamin C) 1,000 mg capsule 1 g PO DAILY magnesium complex with D3 and Zinc PO Rx Instructions: Magnesium 230mg-D3 30mcg-Zinc 10.5mg Lacto no.[id number]-larch 25B cell-25B cell-50 mg capsule PO turmeric 400 mg capsule PO omega-3 fatty acids 500 mg capsule 500 mg PO DAILY Referrals: Juvenal Pineda DO [Primary Care Provider, Family Practice] Stand Alone Forms: Patient Portal/API
[2024-10-07 04:52] VITALS: BP 139/85; PULSE 62; O2SAT 98
== END 2024-10-07 04:58 | disposition home or self-care (01) ==
PROVIDERS: Emergency Provider Emergency Medicine; PCP Family Medicine
DX: S96.911A Strain of unspecified muscle and tendon at ankle and foot level, right foot, initial encounter (principal); X50.1XXA Overexertion from prolonged static or awkward postures, initial encounter
CPT/HCPCS: 73610; 99281; 99283